=== PATIENT | female | born 1945 | race Caucasian/White ===

== ENCOUNTER → 2017-02-27 | Outpatient (CLI) | payer OTHER ==
[~2017-02-27] VITALS: Ht 157.5 cm; Wt 73.0 kg
[~2017-02-27] MED LIST: ASPIR 8181 MG PO; CALCIUM500 MG PO; CELEBREX 200 M200 M1 PO; KRILL OIL 1,001 EAC1 PO; LEVOTHYROXINE0.05 MG PO; MELATONIN3 MG PO; METHADONE HCL5 MG PO; MIRAPEX0.25 MG PO; NEURONTIN600 MG PO; NEXIUM40 MG PO; OMEPRAZOLE40 MG PO; PERCOCET; STOOL SOFTENER100 M1 PO; TRAMADOL 50 MG50 MG PO; UNICOMPLEX M TA1 TA1 PO; VITAMIN D3400 UNIT PO; ZANAFLEX4 M2 PO; ZANAFLEX4 MG PO; ZANTAC 150MG T150 MG PO; ZOCOR40 MG PO; ZOLPIDEM TARTRA10 MG PO; [UNRECOGNIZED DRUG - REMARK]; [UNRECOGNIZED DRUG - REMARK]
--- NOTE | ~2017-02-27 | HPC ---
[facility] [address] [address] PAIN MANAGEMENT CONSULTATION Name: MARILYN BAILON Room #: REG [facility] [id number] Admission: 02/27/17 Attend Phys: Terry Avilez MD Discharge: Date of : 41 Report #: [id number] THIS REPORT FOR: //name// CC: Fredrick Avilez DATE OF SERVICE: 02/27/2017 REASON FOR CONSULTATION: Followup visit for low back pain with radiculopathy, status post laminectomy. HISTORY OF PRESENT ILLNESS: The patient returns to pain clinic for medication management. She is on methadone. She tells me that her insurance company may not allow her to take it or is going to charge her a premium if she is taking methadone. This medication works well for her. She has very few side effects. Its long acting effects provided [id number] pain relief for this poor woman who has had post-laminectomy syndrome and chronic intractable pain. She has had multiple back surgeries. She deserves to be on some medication. Given her improvement in daily function and lack of side effects and her modest dose of methadone at 15-20 mg a day, I think she should be allowed to remain on it. Other medications include tizanidine, docusate, simvastatin, melatonin, ranitidine, krill oil, calcium, cholecalciferol, and gabapentin. ALLERGIES: MORPHINE and HYDROCODONE are poorly tolerated, OXYCODONE causes nausea and higher doses of METOCLOPRAMIDE and TRAMADOL cause dizziness. PAST MEDICAL HISTORY: Significant for 3 low back surgeries in 2004, 2012 and 2013 and another surgery in 2016. She has had breast reconstruction, cervical fusion and bilateral total shoulder surgery and hysterectomy. SOCIAL HISTORY: She denies tobacco or alcohol. 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 PHYSICAL EXAMINATION: GENERAL: She is soft spoken, pleasant, does not appear overmedication. VITAL SIGNS: Blood pressure 136/75, heart rate 58, respirations 15. She walks with a cane. Her BMI is 29.4. MUSCULOSKELETAL: She has tenderness across her scars of her low back. She has bilateral leg pain with significant pain into her left groin and pain with internal and external rotation of the hips suggesting hip arthropathy. She has had x-rays confirming this. She has decreased sensation in the lower extremities and decreased deep tendon reflexes as well. [facility] [address] [place] [address] PAIN MANAGEMENT CONSULTATION Name: MARILYN BAILON [facility] [id number] Admission: 02/27/17 Attend Phys: Terry Avilez MD Discharge: Date of : 41 Report #: [id number] IMPRESSION: 1. Chronic low back pain with radiculopathy status post multiple lumbar surgeries and fusion. 2. Management of high risk medication. 3. Osteoarthritis, left hip. PLAN: 1. I have renewed her methadone at 20 mg a day. 2. Urine drug screen was performed today in terms of our opioid agreement. 3. I performed rhythm strip today and look for QT interval prolongation, which she does not have. 4. Follow up in the pain clinic in 3 months. Because of the restrictions she is having financially with methadone, we may consider at transitioning her to a different opioid. By: [id number] Terry Avilez MD /nt
[2017-02-27 09:20] VITALS: BP 136/75
== END ==
LOC: PAIN 06:52
DX: M54.16 Radiculopathy, lumbar region (principal); M96.1 Postlaminectomy syndrome, not elsewhere classified; Z90.710 Acquired absence of both cervix and uterus; M16.12 Unilateral primary osteoarthritis, left hip

== ENCOUNTER → 2017-05-05 | Outpatient (CLI) | payer OTHER ==
[~2017-05-05] VITALS: Ht 157.5 cm; Wt 72.0 kg
[~2017-05-05] MED LIST changes: +CRESTOR10 MG PO; +OXYCODONE-ACET1 EACH PO
--- NOTE | ~2017-05-05 | HPC ---
[facility] [address] [address] PAIN MANAGEMENT CONSULTATION Name: MARILYN BAILON Room #: REG [facility]..#: [id number] Admission: 05/05/17 Attend Phys: Terry Avilez MD Discharge: Date of : 41 Report #: [id number] THIS REPORT FOR: //name// CC: NINA Sauceda MD DATE OF SERVICE: 05/05/2017 Followup visit for management of chronic opioid medication for intractable low back pain with radiculopathy, status post multiple back surgeries. The patient returns to pain clinic today for renewal of her methadone. She is on 5 mg 4 times daily by our last record; however, she has self tapered to 5 mg t.i.d. and has done pretty well. Her neuropathic pain has been managed well with the transition of methadone and she has few side effects. She has bilateral osteoarthritis involving her knees and she is undergoing bilateral knee replacement with Dr. Sukumar Sauceda in 2 weeks. She is here today for renewal of her baseline pain medication and also to discuss management of these medications in the perioperative period. We reviewed her other medications as well during her visit today. Medications include methadone 5 mg t.i.d., tizanidine 4 mg p.r.n., Crestor 10 mg daily, simvastatin 40 daily, melatonin 3 mg at bedtime, ranitidine 150 mg b.i.d., calcium, multivitamins, vitamin D3, Synthroid, gabapentin 600 mg t.i.d. and Mirapex. ALLERGIES: Morphine, hydrocodone, oxycodone are poorly tolerated, but she does well with methadone. She is allergic to REGLAN, TRAMADOL causes nausea and dizziness. PHYSICAL EXAMINATION: GENERAL: She is pleasant, alert and oriented. She has no signs of overmedication anxiety or depression. VITAL SIGNS: Her blood pressure is 108/50, heart rate 53, respirations 14. Her BMI 29. MUSCULOSKELETAL: She is able to move from a sitting to standing position and walks upright. She has tenderness bilaterally in the knees. Range of motion increases discomfort bilaterally in the knees. She has tenderness over the scar of her back and straight leg raising causes some leg pain bilaterally. IMPRESSION: 1. Chronic intractable low back pain, post-laminectomy syndrome. 2. Osteoarthritis, bilateral knees. [address] [address] PAIN MANAGEMENT CONSULTATION Name: MARILYN BAILON Room #: REG [facility] CecilSridhar.#: [id number] Admission: 05/05/17 Attend Phys: Terry Avilez MD Discharge: Date of : 41 Report #: [id number] 3. Management of high risk medications. PLAN: I have recommended that over the course of the next 2 weeks, she try to taper to the lowest dose she can with her methadone. This simple tapering may provide her with better pain control in the postoperative period using opioids. She may also use adjuncts as described with Dr. Sauceda. She can continue on her gabapentin. At the time of surgery, she can resume her dose of 15 mg per day of methadone as a baseline, and I have also taken the liberty today of providing her with her breakthrough medication and given her 60 tablets of oxycodone 10/325 one tablet q. 4- 6 hours p.r.n. postoperative pain. I have also written a note by hand that she can give to Dr. Sauceda that says that she has been followed for chronic pain syndrome and I have prescribed breakthrough medication for her. If, however, they feel that other adjuncts or changes in medication are appropriate, I have no problems with that and it should not insurance coder the way of providing her with good postoperative pain control. She will contact our office if there are any problems and I am going to see her back in 2-3 months. By: [id number] Terry Avilez MD /nt
[2017-05-05 08:41] VITALS: BP 108/50
== END | disposition home or self-care (01) ==
LOC: PAIN 06:05
DX: M96.1 Postlaminectomy syndrome, not elsewhere classified (principal); G89.29 Other chronic pain; M17.0 Bilateral primary osteoarthritis of knee; F11.20 Opioid dependence, uncomplicated; Z88.8 Allergy status to other drugs, medicaments and biological substances; Z98.890 Other specified postprocedural states

== ENCOUNTER → 2017-07-28 | Outpatient (CLI) | payer OTHER | LOC: PAIN 07:04 | DX: M54.5 Low back pain (principal); Z96.652 Presence of left artificial knee joint ==

== ENCOUNTER → 2017-08-25 | Outpatient (CLI) | payer OTHER ==
[~2017-08-25] VITALS: Ht 157.5 cm; Wt 73.5 kg
[~2017-08-25] MED LIST changes: +IBUPROFEN 800800 M1 PO; +OXYCODONE-ACET1 EAC2 PO
--- NOTE | ~2017-08-25 | HPC ---
[facility] [place] [address] PAIN MANAGEMENT CONSULTATION Name: MARILYN BAILON [facility] #: [facility] [id number] Admission: 08/25/17 Attend Phys: Terry Avilez MD Discharge: Date of : 41 Report #: [id number] THIS REPORT FOR: //name// CC: Fredrick Avilez DATE OF SERVICE: 08/25/2017 Followup visit for management of opioid medication with tapering of methadone. The patient returns to pain clinic today and I am pleased to report that she is nearly off of her methadone. The goal was to go off of methadone, but she has substituted oxycodone for it. She was previously taking methadone 15 mg daily, is now down to 2.5 mg daily. In replacement, she has been using oxycodone and is up to 20 mg per day. She has gotten off of methadone because of insurance restrictions. She is told that she could not get insurance while on methadone. I have learnt not to question insurance's restrictions since they are so many and they are so varied. It makes no different that we have had such excellent success in treating chronic intractable pain with methadone carefully monitored. We will follow up her request and discontinue methadone by the end of the week. She has made good progress since her bilateral knee replacement surgery. She is hopeful that she may be able to taper her oxycodone as well. She is stronger as a result of swimming 3-4 times a week, and is doing pool exercises in between. She is working towards independence. Unfortunately, she continues to have left sciatica which is constant and it is worse than it was before surgery. She has had two surgeries, Dr. oLng did the first, Dr. Bella did redo fusion. She may have some mobile segment above and below her fusion which includes L4 and L5, but I not certain that Dr. Bella fused the L5-S1 segment. PHYSICAL EXAMINATION: She appears stronger. She is pleasant, alert, and oriented. She has her blood pressure 150/72, heart rate 67, BMI is 29.6. She is able to move from sitting to standing position, and ambulates on her new knees with good muscle tone noted. She has a positive straight leg raising, sciatic discomfort on the left, but the knees are doing well with minimal tenderness. Incisions are healed nicely. IMPRESSION: 1. Chronic low back pain following multiple surgeries including recent fusion, repeat in October [address] Trevon Bella. Persistent low back pain with radiculopathy on the left L5-S1. 2. Status post bilateral knee replacement. She is doing well with continued excellent efforts towards rehabilitation. 3. Management of high-risk medication. [address] [address] PAIN MANAGEMENT CONSULTATION Name: MIGUEL BAILONHUMBERTO Cecil Room #: REG CL Ketan#: [id number] Admission: 08/25/17 Attend Phys: Terry Avilez MD Discharge: Date of : 41 Report #: [id number] RECOMMENDATIONS: We have disposed the remaining methadone tablets. We provided her with a prescription for oxycodone 10/325, #60 tablets 1 tablet twice daily or 1-1/2 tablet up to 4 times daily. She was given a prescription refill for 4 and 8 weeks. We reviewed the importance of safeguarding medications under terms of an opioid agreement. Followup visit planned in 3 months. By: [id number] Terry Avilez MD /nt
[2017-08-25 12:40] VITALS: BP 150/72
== END | disposition home or self-care (01) ==
LOC: PAIN 07:34
DX: Z76.0 Encounter for issue of repeat prescription (principal); G89.29 Other chronic pain; M54.16 Radiculopathy, lumbar region; Z98.890 Other specified postprocedural states; Z96.653 Presence of artificial knee joint, bilateral; Z79.891 Long term (current) use of opiate analgesic; Z88.6 Allergy status to analgesic agent; Z88.8 Allergy status to other drugs, medicaments and biological substances

== ENCOUNTER → 2017-10-13 | Outpatient (CLI) | payer OTHER ==
[~2017-10-13] VITALS: Ht 157.5 cm; Wt 75.3 kg
[~2017-10-13] MED LIST changes: +IBUPROFEN 600600 M1 PO; -IBUPROFEN 800800 M1 PO
--- NOTE | ~2017-10-13 | HPC ---
[facility] [place] [address] PAIN MANAGEMENT CONSULTATION Name: MARILYN BAILON Room #: REG [facility]#: [id number] Admission: 10/13/17 Attend Phys: Terry Avilez MD Discharge: Date of : 41 Report #: [id number] THIS REPORT FOR: //name// CC: Fredrick Avilez DATE OF SERVICE: 10/13/2017 Followup visit for low back pain with radiculopathy on the left. Postlaminectomy syndrome with fusion. The patient is here today to discuss an epidural injection. She saw Dr. Bella. Although additional surgeries may be in the offing she already has had extensive lumbar and Thoracic Surgery. She has ongoing persistent pain that radiates into the left leg. Although it follows the L5-S1 region. Dr. Bella felt that it is possible that the pain may be generated in the lateral recess on the left above the level of her fusion. She has a decompression in the lower lumbar region as well as the decompression in the upper lumbar and thoracic. Fusion is noted in the lumbar spine with hardware on the right. She says the pain currently is extremely severe, radiates in a sharp shaking manner down the left leg, not only down the back or leg, but also into the left groin, which does follow an L1-L2 distribution. MEDICATIONS: Oxycodone 10/325 one tablet taken twice a day. We discussed increasing it to 3 times a day. At one time, I had her on a low dose methadone, which was intended to help with a neuropathic component with it NMDA antagonism. She decided that she does not want to be off and tapered off of it. Her pain level; however, has been persistent around 5/10. She has been working at therapy over the course of the last 2 months, but is tailed off recently due to exacerbations of pain. PHYSICAL EXAMINATION: Blood pressure 148/74, heart rate 68. BMI is 30. Affect is depressed pain across the low back. Pain across her scars positive straight leg raising is noted on the left and right worse in the left groin. Mild pain in the left hip with internal and external rotation. IMPRESSION: 1. Post-laminectomy syndrome with radiculopathy, recent fusion. 2. Status post bilateral knee replacements with osteoarthritis improvement there. 3. Management of high risk medication oxycodone. PLAN: 1. I have rewritten for her medication. 2. Left L1-L2 transforaminal epidural injection on the left under fluoroscopic [facility] [address] [place] [address] PAIN MANAGEMENT CONSULTATION Name: MARILYN BAILON Room #: REG [facility]#: [id number] Admission: 10/13/17 Attend Phys: Terry Avilez MD Discharge: Date of : 41 Report #: [id number] guidance. Procedure: LUMBAR TRANFORAMINAL INJECTION LEFT L 1-2 We discussed midline injection but due to significant osteophytes we were unable to enter the epidural space using a traditional translaminar epidural approach. I then with informed consent transitined to transforaminal injection as noted. 3. She was taken to fluoroscopic suite, placed prone, skin prepped with ChloraPrep. Skin was anesthetized over L2-L3 and a 20-gauge Tuohy epidural needle advanced in the epidural space Several attempts were made to identify the ligament of flavum without success and entering the epidural space due to osteophytic information. We transitioned to transforaminal approach. Skin was anesthetized and a 22-gauge needle advanced into the neural foramen on the left using triplanar fluoroscopic views. Good spread of Omnipaque was noted along the L1 nerve root and then extending into the epidural space was followed then by 3 mL of 0.5% lidocaine mixed with 80 mg of triamcinolone pain, reduced to a 2 in recovery room. Followup visit planned for medication management in 1 month. <ELECTRONICALLY SIGNED> By: Terry Avilez MD 10/15/17 1551 [id number] Terry Avilez MD /nt
[2017-10-13 09:11] VITALS: BP 148/74
== END | disposition home or self-care (01) ==
LOC: PAIN 06:05
DX: M96.1 Postlaminectomy syndrome, not elsewhere classified (principal); Z68.30 Body mass index [BMI] 30.0-30.9, adult; M54.10 Radiculopathy, site unspecified; M54.16 Radiculopathy, lumbar region

== ENCOUNTER → 2018-01-05 | Outpatient (CLI) | payer OTHER ==
[~2018-01-05] VITALS: Ht 157.5 cm; Wt 77.0 kg
--- NOTE | ~2018-01-05 | HPC ---
[facility] [address] [address] PAIN MANAGEMENT CONSULTATION Name: MARILYN BAILON Room #: REG [facility].#: [id number] Admission: 01/05/18 Attend Phys: Terry Avilez MD Discharge: Date of : 41 Report #: [id number] THIS REPORT FOR: //name// CC: Trevon Avilez DATE OF SERVICE: 01/05/2018 REASON FOR VISIT: Followup visit for low back pain with radiculopathy on the left, status post laminectomy with fusion. HISTORY OF PRESENT ILLNESS: The patient returns today for renewal of her medication and for an epidural injection. She is on oxycodone 10/325 three times daily but has been on methadone in the past and would like to rotate back to it. I have agreed to provide her with 5 mg of methadone 3 times daily for a total of 15 mg equaling 60 MME. She has tried multiple other classes of medications including anti-inflammatories and anti-seizure drugs with limited improvement. Today, she states her pain intensity is high, 6-7 particular with walking. We reviewed her PQRS issues. She has a history of osteoarthritis of the hands and back. Her BMI is 31.0 and she has found difficulty controlling her weight due to her lack of ability to get up and about. She is not hypertensive and is not on her current treatment. She needs help walking and standing and uses a cane, but has not had a fall in the last 3 months and is not considered a fall risk. She is on no blood thinners. Her opioid risk assessment tool is low, 2-3 and her functional assessment tool shows that she is affected mostly in the in regards to her mood, which is 7/10 and walking ability 5/10 and sleep, which is 5/10. Her goals are to be able to remain walking and resume activities. Continue with an exercise program, swimming at her facility. IMPRESSION: Chronic low back pain, post-laminectomy syndrome with fusion. Left lumbar radiculopathy involving L4-L5 distribution. RECOMMENDATION: Lumbar epidural injection L4-L5 under fluoroscopic guidance. PROCEDURE: She was taken to fluoroscopic suite for treatment, placed prone, skin prepped with ChloraPrep. Skin anesthetized over the L4-L5 interspace. A 20-gauge Tuohy epidural needle advanced first attempt in the epidural space with loss of resistance technique. There was no blood or CSF aspirated. 1 mL of Omnipaque was injected and an excellent spread of dye was observed into the epidural space followed by 3 mL of 0.5% lidocaine mixed with 80 mg of triamcinolone. He tolerated the procedure well and was observed for 45 minutes and discharged. [address] [address] PAIN MANAGEMENT CONSULTATION Name: MARILYN BAILON Room #: REG CLAlida Aceves#: [id number] Admission: 01/05/18 Attend Phys: Terry Avilez MD Discharge: Date of : 41 Report #: [id number] Followup visit planned as needed. <ELECTRONICALLY SIGNED> By: Terry Avilez MD 01/28/18 1640 2032 0017 Terry Avilez MD /nt
[2018-01-05 13:53] VITALS: BP 146/74
== END | disposition home or self-care (01) ==
LOC: PAIN 07:08
DX: M54.16 Radiculopathy, lumbar region (principal); M96.1 Postlaminectomy syndrome, not elsewhere classified; F11.20 Opioid dependence, uncomplicated; Z68.31 Body mass index [BMI] 31.0-31.9, adult; M19.042 Primary osteoarthritis, left hand; M19.041 Primary osteoarthritis, right hand

== ENCOUNTER → 2018-07-16 | Outpatient (CLI) | payer OTHER ==
[~2018-07-16] VITALS: Ht 157.5 cm; Wt 75.6 kg
--- NOTE | ~2018-07-16 | HPC ---
[facility] [address] [place] [address] PAIN MANAGEMENT CONSULTATION Name: MARILYN BAILON Room #: REG [facility].#: [id number] Admission: 07/16/18 Attend Phys: Terry Avilez MD Discharge: Date of : 41 Report #: [id number] THIS REPORT FOR: //name// CC: Fredrick Avilez DATE OF SERVICE: 07/16/2018 Followup visit for chronic back pain and osteoarthritis of left hip. Marilyn is here today for renewal of medications we provide for her to treat chronic intractable back pain with radiculopathy. She has had a laminectomy with fusion. Her recovery was very long and slow, but as noted in her last visit, she has made nice progress. Her pain scores remain low with medication for which she is grateful. She has no significant side effects from methadone taking 5 mg 3 times a day for her pain. She has no cognitive issues and has only mild constipation. Her activity levels around the house are good and she is able to drive a car without significant pain. She gardens and does other activities as part of her goal of remaining active. PQRS review shows that she has pain in her left hip with some osteoarthritis there and may be a candidate for hip replacement. She is keeping her weight down with a BMI of 30.5, blood pressure 127/77, heart rate 57, respirations 20, pain score 3/10. She is not a fall risk. She is on no blood thinners and she is on opioid medication having filled out an opioid agreement in 01/2016, most recently. She is at low risk for addiction. SOCIAL HISTORY: She does not smoke, but drinks alcohol once or twice a week in a social setting. PHYSICAL EXAMINATION: GENERAL: She is alert and oriented, without signs of overmedication. She shows no depression. She is easily able to move from sitting to standing position, walks without antalgic features. She has pain across her low back and tenderness from her scar. Straight leg raising reproduces some pain into the low back and legs, but this is mild and much improved. She has pain and tenderness over the greater trochanter in the left hip and there is pain with internal and external rotation. IMPRESSION: 1. Chronic low back pain with radiculopathy, post-laminectomy syndrome. She also has fusion. 2. Osteoarthritis, particularly left hip. PLAN: We will continue her on methadone 5 mg 3 times daily. Recent [facility] [address] [place] [address] PAIN MANAGEMENT CONSULTATION Name: MARILYN BAILON [id number] Admission: 07/16/18 Attend Phys: Terry Avilez MD Discharge: Date of : 41 Report #: [id number] calculations have used an MME of 3-1 and that calculates at 40 morphine milligram equivalents. PDMP testing was performed and there are no unusual entries. By: [id number] MD parveen Corbett
[2018-07-16 09:28] VITALS: BP 127/77
== END ==
LOC: PAIN 07:15
DX: M54.16 Radiculopathy, lumbar region (principal); M16.12 Unilateral primary osteoarthritis, left hip; G89.29 Other chronic pain; Z79.899 Other long term (current) drug therapy

== ENCOUNTER → 2018-10-26 | Outpatient (CLI) | payer OTHER ==
[~2018-10-26] VITALS: Ht 157.5 cm; Wt 79.0 kg
--- NOTE | ~2018-10-26 | HPC ---
[facility] [address] PAIN MANAGEMENT CONSULTATION Name: MARILYN BAILON Room #: REG [facility].#: [id number] Admission: 10/26/18 Attend Phys: Guillermina Perez Discharge: Date of : 41 Report #: [id number] THIS REPORT FOR: //name// CC: Guillermina Alexandra MD DATE OF SERVICE: 10/26/2018 CHIEF COMPLAINT: Followup visit today for chronic back pain and osteoarthritis of her left hip. HISTORY OF PRESENT ILLNESS: The patient is here today for refill of her medications that we give to her for her chronic back pain and left hip pain. She has had several back surgeries in the past and tells me that Friday she will be having a total hip replacement of her left hip by Dr. Sauceda. She gives her pain score a 4/5 today, worse with standing and walking and the weather, better with lying down and resting and her medications. She has been having increasing left groin pain and tells me that she did have one injection in her left hip that made her pain completely go away, and therefore she decided that it was finally time to have her hip operated on. The patient is here for her followup for her medications prior to this surgery. ALLERGIES: MORPHINE, REGLAN AND TRAMADOL. CURRENT LIST OF MEDICATIONS: Methadone 5 mg 3 times a day, Crestor 10 mg daily, tizanidine 4 mg 1-2 at bedtime, Colace stool softener, Zantac 150 mg at bedtime, CPD hormones daily, calcium daily, multivitamin daily, vitamin D3 daily, Synthroid 50 mcg daily, Mirapex 0.25 mg twice a day and gabapentin 600 mg 3 times a day. PQRS: 1. She has a history of osteoarthritis in her back, hands and left hip, denies rheumatoid arthritis. 2. Her height is 5 feet 2 inches, her weight is 174, her BMI is 31.9. 3. Her vital signs are 139/68, pulse is 56, respirations 16, and oxygen sat is 100%. 4. Her pain score is 4/5. 5. Her fall risk, she denies dizziness, uses a cane for walking and has not fallen in the last 3 months. 6. She is not on any blood thinners and does not have a history of hypertension. 7. Her opioid therapy is greater than 6 weeks, therefore she has an opioid signed contract on the chart. Her risk assessment tool is low and her functional assessment is 27/70. She denies recreational drug use, does not [address] [address] PAIN MANAGEMENT CONSULTATION Name: MARILYN BAILON Room #: REG [facility].#: [id number] Admission: 10/26/18 Attend Phys: Guillermina Perez Discharge: Date of : 41 Report #: [id number] smoke tobacco and occasionally has some alcohol drinks up to 1 drink a week. We checked [facility] prescription monitoring system on this patient and she is filling her methadone appropriate by Dr. Terry Avilez. The patient tells me she safeguards her medicines. PHYSICAL EXAMINATION: GENERAL: This is an alert, orientated patient who appears her stated age. Her affect is appropriate. HEENT: Normocephalic, atraumatic. Extraocular eye muscles are intact. Mucous membranes are moist. Hearing is adequate. NECK: No JVD or adenopathy. She has good range of motion. MUSCULOSKELETAL: She has pain across her lower back, tenderness from her scar incisional area, right leg raising has some pain in her lower back and legs. Tenderness in her left hip and into her groin area. Lower extremity strength to be judged at 5/5 in all major muscle groups. IMPRESSION: Chronic low back pain with radiculopathy, post-laminectomy syndrome. She has had fusions. Osteoarthritis of her left hip. Complex medical management requiring high risk medications. We reviewed the fact that opiate medications are being used to provide analgesia adequate to support activities of daily living, not attempting to achieve a specific pain score on the 0-10 Visual Analog Scale. The current opiate medications are providing sufficient analgesia to allow the patient to participate in activities of daily living. The patient is not exhibiting any aberrant behavior suggestive of drug diversion. The patient is not having any adverse reactions to medications. The patient is not suffering from daytime somnolence or mental acuity changes. The patient is managing opiate-induced constipation with appropriate owxf-xtz-idnwzeo agents and dietary considerations. The patient was counseled on concern for caution with operating a motor vehicle while using opiate medications. A physical exam was performed and the patient's functional status was evaluated. All patients with back pain were advised against the bed rest greater than 4 days and were advised to return to normal activities. Pain score assessment was noted and the treatment plan was reviewed with the patient. All current medications, both prescribed and OTC were reviewed and reconciled on the electronic medical record. Tobacco screening was accomplished and smoking cessation was advised when indicated. BMI was noted and diet/exercise modification was recommended for all patients following outside normal parameters. I reviewed with the patient today their responsibilities to safeguard prescription medications, reviewed their responsibility to utilize medications only as prescribed by the physician. They are to seek and receive pain medications only from 1 physician group ( [facility]). They are to use [address] [id number] PAIN MANAGEMENT CONSULTATION Name: MARILYN BAILON Room #: REG [facility]#: [id number] Admission: 10/26/18 Attend Phys: Guillermina Perez Discharge: Date of : 41 Report #: [id number] pharmacy and keep the clinic informed if they change pharmacies. Their responsibilities include making followup visits in a timely fashion and to avoid abrupt discontinuation of medication usage. Their responsibilities further include bringing their medications (bottles from the pharmacy with residual pills) to the visit for possible confirmation of pill counts and the patient understands it is their responsibility to submit to random drug screens to ensure both that the medications prescribed are present, and that no other controlled substances are present. All prescriptions provided today were generated electronically. PLAN: 1. The patient returned to the clinic today for follow up for her medications management. We will continue her on methadone 5 mg 3 times a day, #90 for today, 4-week and 8-week, scripts given. 2. It was discussed that the patient will decrease her methadone to 2 tablets a day until her surgery to hopefully aid a little bit in her postop pain control. The patient is agreeable to this. Would have liked to have done this a little longer for her better pain control postop, but at least a few days should be helpful. 3. The patient informed me that the surgeon is planning on giving her oxycodone. I told her that is fine. She looks like she had had oxycodone 5/325 in the past for postop knee surgery. The patient thinks she will require that for 2 weeks. The patient will inform us if it needs to be longer and then we will write a prescription as needed. 4. We did discuss CBD oil. The patient has tried this, but did not think it was very helpful. We did talk about this for a while, stating that it is not regulated so not all CBD is the same in strength and concentration. The patient thought that was the case for her and has not been continuing it, maybe in the future if it is regulated she may try it again. 5. We discussed constipation. The patient takes Colace and FiberCon for this. I explained that she may need to increase this some, especially as she takes hydrocodone or oxycodone in the postop phase and with decreased mobility she may have increase in constipation and encouraged her to drink plenty of liquids to prevent constipation. The patient is agreeable with this plan of care, will follow up with us in 3 months' time. The patient seen in collaboration with Dr. Terry Avilez today. <ELECTRONICALLY SIGNED> By: Guillermina Perez 10/27/18 0819 [id number] Guillermina Perez /roseann
[2018-10-26 12:22] VITALS: BP 139/68
== END ==
LOC: PAIN 00:27
DX: M54.16 Radiculopathy, lumbar region (principal); M43.26 Fusion of spine, lumbar region; M16.12 Unilateral primary osteoarthritis, left hip; G89.29 Other chronic pain; M96.1 Postlaminectomy syndrome, not elsewhere classified; Z79.899 Other long term (current) drug therapy

== ENCOUNTER → 2019-01-22 | Outpatient (CLI) | payer OTHER ==
[~2019-01-22] VITALS: Ht 157.5 cm; Wt 79.4 kg
[2019-01-22 09:53] VITALS: BP 141/77
--- NOTE | 2019-01-22 10:01 | NUR ---
Pain Clinic Assessment: 1. History of Osteoarthritis: BACK HANDS History of Rheumatoid Arthritis: Not Applicable 2. Height: 5 ft. 2 in. 157.5 cm. Weight: 175.0 lb. oz. 79.380 kg. Patient's BMI: 32.0 3. Vital Signs: BP: 141/77 Pulse: 61 Resp: 18 Temp: 02 Sat: 100 ECG Mon: 4. Pain Intensity: 4-5 5. Fall Risk: Dizziness: N Needs help standing or walking: Y Fallen in the last 3 months: N Fall risk comments: 6. Patient on Blood Thinner: None 7. History of Hypertension: N 8. Opioid Therapy greater than 6 weeks: Y Opiate Contract Signed: 02/28/16 9. Risk Assessment Tool Provided: Opioid Risk Tool 10. Functional Assessment Tool: 27 11. Recreational Drug Use: Never Drug Type: Tobacco Use: Never Smoker Tobacco Type: Amount or Packs/day: How Many Years: Alcohol Use: Yes Frequency: Special Occasions Quant:
--- NOTE | 2019-01-25 13:58 | HPC ---
[facility] [place] [address] PAIN MANAGEMENT CONSULTATION Name: MARILYN BAILON Room #: REG [facility]#: [id number] Admission: 01/22/19 ������������������ Attend Phys: Guillermina Perez Discharge: ������������������ Date of : 41 Report #: [id number] THIS REPORT FOR: //name// CC: Guillermina Perez FAM unknown Deonna Browne DATE OF SERVICE: 01/22/2019 CHIEF COMPLAINT: Chronic back pain and osteoarthritis of her left hip. HISTORY OF PRESENT ILLNESS: The patient returns to the pain clinic today for medication refill. She recently had her left hip replaced in October. She tells me that she is still having some pain in that hip, especially the left groin and today complaining of an increase in her lower back pain. She is seeing Dr. Beasley, her orthopedic doctor on Friday and she does have an appointment with Dr. Alexandra, her primary care doctor following that. She thinks that maybe she will have another MRI ordered to see what is going on with her back. She is walking with a cane today mostly for slight stability issues. She feels that she should be off the cane by now since her hip surgery in October. She would like a refill of her methadone today. She has been taking some postoperative oxycodone that was given to her by Dr. Beasley after her surgery. She tells me the last dose was a couple days ago, she has been taking now only about 1-2 a week. ALLERGIES: MORPHINE, REGLAN and TRAMADOL. CURRENT LIST OF MEDICATIONS: Methadone 5 mg 3 times a day, ibuprofen 600 mg as needed, Crestor 10 mg daily, tizanidine 1-2 tablets at bedtime, stool softener as needed, Zantac 150 mg b.i.d., CPD hormones daily, calcium 500 mg daily, multivitamin daily, vitamin D3 daily, Synthroid 500 mcg daily, Mirapex 0.25 mg b.i.d. and gabapentin 600 mg t.i.d. PQRS: 1. She does have a history of osteoarthritis in her back, hands and left hip. Denies rheumatoid arthritis. 2. Height is 5 feet 2 inches, weight is 175. BMI is 32. 3. Vital signs: Blood pressure 141/77, pulse is 61, oxygen 100%, respirations 18. 4. Pain score is 4-5/10. 5. Denies dizziness. Uses a cane with walking and has not fallen in the last 3 months. 6. The patient is not on a blood thinner. She does not have a history of hypertension. 7. Opioid therapy is greater than 6 weeks, therefore an opioid signed contract is on the chart. [address] [address] PAIN MANAGEMENT CONSULTATION Name: MARILYN BAILON Room #: REG [facility]#: [id number] Admission: 01/22/19 ������������������ Attend Phys: Guillermina Perez Discharge: ������������������ Date of : 41 Report #: [id number] 8. Risk assessment tool is low. Her functional assessment is 27/70. 9. Recreational drug use, she denies. She is not a smoker and she occasionally drinks alcohol. We did check the prescription monitoring system. The patient is filling appropriately with her medications. She did fill some oxycodone recently from her surgeon. We will check a buccal drug screen on her today as it has been greater than one year PHYSICAL EXAMINATION: GENERAL: This is an alert, orientated, well-nourished female who appears her stated age. Her affect is appropriate. HEENT: Normocephalic, atraumatic. Extraocular eye muscles are intact. Mucous membranes are moist. Hearing is adequate. NECK: No JVD or adenopathy. MUSCULOSKELETAL: She complains of some pain across her lower back, tenderness in her left groin and on the outer aspect of her left hip. The patient is able to abduct without difficulty, able to rise from sitting to standing position without using the arm rest, does use a cane for some slight balance issues. Her lower extremity strength judged to be 5/5 in all major muscle groups. ASSESSMENT: 1. Chronic low back pain with radiculopathy. 2. Post-laminectomy syndrome. 3. Osteoarthritis of the left hip post left hip replacement. 4. Complex medical management requiring high risk medications. We reviewed the fact that opiate medications are being used to provide analgesia adequate to support activities of daily living, not attempting to achieve a specific pain score on the 0-10 Visual Analog Scale. The current opiate medications are providing sufficient analgesia to allow the patient to participate in activities of daily living. The patient is not exhibiting any aberrant behavior suggestive of drug diversion. The patient is not having any adverse reactions to medications. The patient is not suffering from daytime somnolence or mental acuity changes. The patient is managing opiate-induced constipation with appropriate uxlg-nnx-tsqbmmw agents and dietary considerations. The patient was counseled on concern for caution with operating a motor vehicle while using opiate medications. A physical exam was performed and the patient's functional status was evaluated. All patients with back pain were advised against the bed rest greater than 4 days and were advised to return to normal activities. Pain score assessment was noted and the treatment plan was reviewed with the patient. All current medications, both prescribed and OTC were reviewed and reconciled on the electronic medical record. Tobacco screening was accomplished and smoking cessation was advised when indicated. BMI was noted and diet/exercise modification was recommended for all patients following outside normal [facility] [address] [place] [address] PAIN MANAGEMENT CONSULTATION Name: MARILYN BAILON Room #: REG [facility].#: [id number] Admission: 01/22/19 ������������������ Attend Phys: Guillermina Perez Discharge: ������������������ Date of : 41 Report #: [id number] parameters. I reviewed with the patient today their responsibilities to safeguard prescription medications, reviewed their responsibility to utilize medications only as prescribed by the physician. They are to seek and receive pain medications only from 1 physician group ( [facility]). They are to use 1 pharmacy and keep the clinic informed if they change pharmacies. Their responsibilities include making followup visits in a timely fashion and to avoid abrupt discontinuation of medication usage. Their responsibilities further include bringing their medications (bottles from the pharmacy with residual pills) to the visit for possible confirmation of pill counts and the patient understands it is their responsibility to submit to random drug screens to ensure both that the medications prescribed are present, and that no other controlled substances are present. All prescriptions provided today were generated electronically. PLAN: 1. We discussed treatment options with the patient today. The patient tells me she has some ongoing left hip pain and she thought that maybe her pain and her gait would be better by now. I explained to the patient that it can take 6 months to a year. This was reiterated when Dr. Underwood saw the patient briefly, and to not be discouraged, that it takes a while for all the healing process and she can have ongoing pain. We encouraged her to continue to use her cane as she needs to for some balance. 2. The patient will see her orthopedic doctor and have another x-ray possibly on Friday. I think this will help the patient with letting her know there is probably nothing going on in her hip, but this will be good just to check and know that it will just take slightly longer to heal. 3. The patient also has appointment with Dr. Alexandra in the near future. She may consider having another MRI ordered of her back. She just feels that this pain has increased since her surgery. 4. The patient given scripts today of methadone 5 mg 3 times a day, to be released today, in 4-week and an 8-week. The patient encouraged to use her oxycodone from her surgeon sparingly and try to slowly wean off that medication as she is able. 5. The patient instructed to make an appointment if she feels like she needs an epidural by Dr. Avilez, otherwise, she will follow up in 3 months' time. The patient is seen today in collaboration and with Dr. Underwood present today for a short part of her visit. ��������������������������������������������� <ELECTRONICALLY SIGNED> ���������������������������������������� By: Guillermina Perez ��������������������������������������������� 01/25/19 1358 1050 20 Guillermina Perez /nt
== END ==
LOC: PAIN 06:55
DX: M96.1 Postlaminectomy syndrome, not elsewhere classified (principal); Z96.642 Presence of left artificial hip joint; Z79.899 Other long term (current) drug therapy; Z88.5 Allergy status to narcotic agent; Z88.8 Allergy status to other drugs, medicaments and biological substances; M54.16 Radiculopathy, lumbar region

== ENCOUNTER → 2019-02-15 | Outpatient (CLI) | payer OTHER ==
[~2019-02-15] VITALS: Ht 157.5 cm; Wt 78.4 kg
--- NOTE | ~2019-02-15 | HPC ---
[facility] [place] [address] [place] [address] PAIN MANAGEMENT CONSULTATION Name: MARILYN BAILON Room #: REG [facility]..#: [id number] Admission: 02/15/19 ������������������ Attend Phys: Terry Avilez MD Discharge: ������������������ Date of : 41 Report #: [id number] THIS REPORT FOR: //name// CC: FAM unknown LANI Avilez DATE OF SERVICE: 02/15/2019 CHIEF COMPLAINT: Chronic and severe low back pain with radiation to the left groin. Status post lumbar laminectomy and fusion. HISTORY OF PRESENT ILLNESS: The patient returns to the pain clinic today complaining of pain primarily into the right groin that follows an L1-L2, L2-L3 distribution. She has a recent MRI for my review. The MRI shows post-surgical changes involving the lumbar spine at multiple levels. There is a solitary right pedicle support bar with a screw in the pedicle of L3, L4, L5. There are significant degenerative changes throughout the lumbar spine resulting in bbxyltva-gq-ywiezx spinal canal stenosis at L1-L2; txep-mn-hzdgipwz right general, greater than left spinal stenosis at L2-L3; mild central stenosis at L5-S1 and left neural foraminal stenosis at L1-L2. There is moderate right neural foraminal stenosis seen at L2-L3. Bilateral stenosis at L4-L5 and L5-S1. In this multitude of findings, it appears to me that the most significant pain generator is at the L1-L2 level where she has significant stenosis. The area was narrowed enough and she has laminectomy above that I do not feel we can easily get into the central canal using a transforaminal or translaminar approach at L1-L2. I can enter, however, just above her fusion at L2-L3. With the likelihood that we get spread along the pedicle cephalad of cortisone, we may be able to provide her with some relief. She plans to see Dr. Bella further to discuss surgical options for treatment of this discomfort. PQRS REVIEW: She has osteoarthritis involving hands, also back. She has pain intensity of 4-6/10. She is a fall risk, having fallen in the past, but not in the last 3 months. She needs help standing and walking. She is on no blood thinners nor is she treated for hypertension. She is on opioid medication provided through our clinic. She is on methadone 5 mg 3 times daily, which has been helpful. Side effects have been managed. She is on an opioid agreement and understands the importance of safeguarding her medication and is grateful for the relief that it provides. She is much more active with medication that she would be without. She understands the opioid crisis in [place]. [address] [address] PAIN MANAGEMENT CONSULTATION Name: MARILYN BAILON Room #: REG [facility]#: [id number] Admission: 02/15/19 ������������������ Attend Phys: Terry Avilez MD Discharge: ������������������ Date of : 41 Report #: [id number] SOCIAL HISTORY: She denies use of tobacco, drinks alcohol in a social setting. PHYSICAL EXAMINATION: Blood pressure is 121/70, heart rate 60, and respirations 14. Her affect is depressed and discouraged because of her chronic pain. She moves from sitting to standing position. She walks with antalgic features. Lumbar range of motion is diminished in flexion, extension and rotation. Tenderness across the lumbosacral spine. Straight leg raising on the right reproduces pain into the groin. She has bilateral lower extremity weakness, worse with hip flexion and extension. Sensation is diminished in the lower extremities through the L4-L5, L5-S1 dermatomal distributions. IMPRESSION: 1. Post-laminectomy syndrome with radiculopathy, primarily involving symptoms in the right groin involving the L2 and some L1 as well as L3. 2. Management of high risk medications under terms of written agreement. She has medication now carrying her through March and does not need new prescriptions. 3. Situational depression. 4. Osteoarthritis. 5. History of bilateral total shoulder. 6. History of anterior cervical diskectomy and fusion. PROCEDURE: Left L2-L3 transforaminal epidural injection under fluoroscopic guidance. DESCRIPTION OF PROCEDURE: She was taken to fluoroscopic suite, placed prone, skin prepped with ChloraPrep. Skin anesthetized over the L2-L3 interspace on the left. Using triplanar fluoroscopic views, I advanced the needle into the neural foramen. 1 mL of Omnipaque was injected. Spread of dye was seen into the epidural space. This was restricted some by scar and the dye spread was not markedly cephalad, but there was some spread along the pedicle. It was extending in a cephalad direction and into the epidural space at that level. It was then followed by 3 mL of 0.5% lidocaine mixed with 80 mg of triamcinolone. She tolerated the procedure well. The local anesthetic did not provide dramatic relief in the recovery room. We will see how she does over the next few weeks. Followup visit planned in the pain clinic again in 1-2 months. We will continue her medication management per terms of our written agreement. ��������������������������������������������� ���������������������������������������� By: ��������������������������������������������� [id number] Terry Avilez MD /nt
[2019-02-15 10:26] VITALS: BP 121/70
--- NOTE | 2019-02-15 10:34 | NUR ---
Pain Clinic Assessment: 1. History of Osteoarthritis: BACK HANDS History of Rheumatoid Arthritis: Not Applicable 2. Height: 5 ft. 2 in. 157.5 cm. Weight: 172.8 lb. oz. 78.382 kg. Patient's BMI: 31.6 3. Vital Signs: BP: 121/70 Pulse: 60 Resp: 14 Temp: 02 Sat: 100 ECG Mon: 4. Pain Intensity: 4 5. Fall Risk: Dizziness: N Needs help standing or walking: Y Fallen in the last 3 months: N Fall risk comments: 6. Patient on Blood Thinner: None 7. History of Hypertension: N 8. Opioid Therapy greater than 6 weeks: Y Opiate Contract Signed: 02/28/16 9. Risk Assessment Tool Provided: Opioid Risk Tool 10. Functional Assessment Tool: 27 11. Recreational Drug Use: Never Drug Type: Tobacco Use: Never Smoker Tobacco Type: Amount or Packs/day: How Many Years: Alcohol Use: Yes Frequency: Quant:
== END | disposition home or self-care (01) ==
LOC: PAIN 07:00
DX: M54.16 Radiculopathy, lumbar region (principal); M96.1 Postlaminectomy syndrome, not elsewhere classified; M48.061 Spinal stenosis, lumbar region without neurogenic claudication; G89.29 Other chronic pain; M19.90 Unspecified osteoarthritis, unspecified site; F43.21 Adjustment disorder with depressed mood; Z79.891 Long term (current) use of opiate analgesic; Z98.890 Other specified postprocedural states; Z79.899 Other long term (current) drug therapy

== ENCOUNTER → 2019-05-06 | Outpatient (CLI) | payer OTHER ==
[~2019-05-06] VITALS: Ht 157.5 cm; Wt 76.6 kg
[~2019-05-06] MED LIST changes: +CLONAZEPAM 0.50.5 M1 PO
[2019-05-06 10:29] VITALS: BP 126/72
--- NOTE | 2019-05-06 10:40 | NUR ---
Pain Clinic Assessment: 1. History of Osteoarthritis: BACK HANDS History of Rheumatoid Arthritis: Not Applicable 2. Height: 5 ft. 2 in. 157.5 cm. Weight: 168.8 lb. oz. 76.567 kg. Patient's BMI: 30.9 3. Vital Signs: BP: 126/72 Pulse: 60 Resp: 14 Temp: 02 Sat: 100 ECG Mon: 4. Pain Intensity: 3-4 5. Fall Risk: Dizziness: N Needs help standing or walking: N Fallen in the last 3 months: N Fall risk comments: 6. Patient on Blood Thinner: None 7. History of Hypertension: N 8. Opioid Therapy greater than 6 weeks: Y Opiate Contract Signed: 02/28/16 9. Risk Assessment Tool Provided: Opioid Risk Tool 10. Functional Assessment Tool: 27 11. Recreational Drug Use: Never Drug Type: Tobacco Use: Never Smoker Tobacco Type: Amount or Packs/day: How Many Years: Alcohol Use: Yes Frequency: Weekly Quant: 3
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
== END ==
LOC: PAIN 06:55
DX: M54.16 Radiculopathy, lumbar region (principal); M96.1 Postlaminectomy syndrome, not elsewhere classified; G89.29 Other chronic pain; Z88.5 Allergy status to narcotic agent; Z88.8 Allergy status to other drugs, medicaments and biological substances; Z79.899 Other long term (current) drug therapy

== ENCOUNTER → 2019-08-05 | Outpatient (CLI) | payer OTHER ==
[~2019-08-05] VITALS: Ht 157.5 cm; Wt 79.3 kg
[~2019-08-05] MED LIST changes: +PERCOCET 10-321 EAC1 PO
[2019-08-05 09:23] VITALS: BP 121/59
--- NOTE | 2019-08-05 09:34 | NUR ---
Pain Clinic Assessment: 1. History of Osteoarthritis: BACK HANDS History of Rheumatoid Arthritis: Not Applicable 2. Height: 5 ft. 2 in. 157.5 cm. Weight: 174.8 lb. oz. 79.289 kg. Patient's BMI: 32.0 3. Vital Signs: BP: 121/59 Pulse: 58 Resp: 16 Temp: 02 Sat: 100 ECG Mon: 4. Pain Intensity: 3 5. Fall Risk: Dizziness: N Needs help standing or walking: N Fallen in the last 3 months: N Fall risk comments: 6. Patient on Blood Thinner: None 7. History of Hypertension: N 8. Opioid Therapy greater than 6 weeks: Y Opiate Contract Signed: 02/28/16 9. Risk Assessment Tool Provided: low-1 10. Functional Assessment Tool: 11. Recreational Drug Use: Never Drug Type: Tobacco Use: Never Smoker Tobacco Type: Amount or Packs/day: How Many Years: Alcohol Use: Yes Frequency: Monthly Quant: 2
--- NOTE | 2019-08-09 12:51 | HPC ---
[facility] [place] [address] PAIN MANAGEMENT CONSULTATION Name: MARILYN BAILON Room #: REG [facility]..#: [id number] Admission: 08/05/19 Attend Phys: Guillermina Perez Discharge: Date of : 41 Report #: [id number] THIS REPORT FOR: //name// CC: Guillermina Perez [facility] physician/PCP DATE OF SERVICE: 08/05/2019 CHIEF COMPLAINT: Chronic low back pain with radiculopathy, status post lumbar laminectomy and fusion. HISTORY OF PRESENT ILLNESS: This is a very pleasant 74-year-old female who returns to the pain clinic today for discussion about her medications and refills. She reports a pain score of 3/10 today. Currently, her pain is in her lower back, left hip and left groin. It is worse with walking and standing and weather changes that she feels that resting and lying down and her methadone have been helpful, though the patient has reported some shortness of breath that has started this summer. She is having a cardiac workup. She has had a chest x-ray performed, which was normal as well as an EKG that was normal per her report. She tells me she recently had a cardiac calcium scan done, has not had those results given to her yet, but she is wondering if it may be related to her methadone. The patient has been taking methadone for a significant time since 2014 per our chart notes, but she tells me that she has had shortness of breath when she has taken other narcotics such as hydrocodone and morphine in the past, wondering if she has developed this problem for methadone now, she is wondering about switching to oxycodone, which she has also taken in the past and had not had issues with. ALLERGIES: MORPHINE, REGLAN AND TRAMADOL. CURRENT LIST OF MEDICATIONS: Omeprazole, methadone 5 mg 3 times a day, ibuprofen, Crestor, Zanaflex, stool softener, Zantac, calcium, multivitamin, vitamin D, Synthroid, Mirapex and Neurontin. PATIENT'S PQRS: 1. She has a history of osteoarthritis in her lumbar spine and hands and bilateral hips. Denies any rheumatoid arthritis. 2. Height is 5 feet 2 inches, weight is 174, BMI is 32. 3. Vital signs 121/59, pulse is 58, respirations 16, oxygen sat is 100. 4. Pain score is 3/10. 5. Denies dizziness, does not need help walking or standing, has not fallen in the last 3 months. 6. The patient is not on any blood thinners, does not have a history of hypertension. Opioid therapy is greater than 6 weeks; therefore, an opioid signed contract is on the chart. 7. Risk assessment tool is low. [place] [address] PAIN MANAGEMENT CONSULTATION Name: MARILYN BAILON Room #: REG [facility] Aceves#: [id number] Admission: 08/05/19 Attend Phys: Guillermina Perez Discharge: Date of : 41 Report #: [id number] 8. Recreational drug use, she denies. She is not a smoker. Does drink alcohol. We did check the prescription monitoring system. The patient is filling appropriately for her medications. She is here to fill them on a timely fashion and there is a recent drug screen on the chart that is appropriate for her medications. PHYSICAL EXAMINATION: GENERAL: This is alert and orientated 74-year-old female who appears her stated age, placing her current pain score at 3/10 today. Her affect is appropriate. HEENT: Normocephalic, atraumatic. Extraocular eye muscles are intact. Mucous membranes are moist. NECK: Without adenopathy or JVD. HEART: Regular rhythm. LUNGS: Clear to auscultation. MUSCULOSKELETAL: Pain is across the lumbar spine, slight tenderness radiating into her left hip following the L4-L5 and L5-S1 dermatomal distribution. She has limited range of motion with flexion and extension and rotation of her lumbar spine from previous surgery. She walks with some antalgic features. Lower extremity strength judged to be 5/5 in all major muscle groups. IMPRESSION: 1. Post-laminectomy syndrome with radiculopathy. 2. Situational depression. 3. Osteoarthritis. 4. History of bilateral total shoulder. 5. History of anterior cervical diskectomy and fusion. 6. Management of high risk medications under terms of written opioid agreement. We reviewed the fact that opiate medications are being used to provide analgesia adequate to support activities of daily living, not attempting to achieve a specific pain score on the 0-10 Visual Analog Scale. The current opiate medications are providing sufficient analgesia to allow the patient to participate in activities of daily living. The patient is not exhibiting any aberrant behavior suggestive of drug diversion. The patient is not having any adverse reactions to medications. The patient is not suffering from daytime somnolence or mental acuity changes. The patient is managing opiate-induced constipation with appropriate qvvg-rtr-cekylrj agents and dietary considerations. The patient was counseled on concern for caution with operating a motor vehicle while using opiate medications. A physical exam was performed and the patient's functional status was evaluated. All patients with back pain were advised against the bed rest greater than 4 days and were advised to return to normal activities. Pain score assessment was noted and the treatment plan was reviewed with the patient. All current [facility] [address] [place] [address] PAIN MANAGEMENT CONSULTATION Name: MARILYN BAILON Room #: REG Al[facility] Aceves#: [id number] Admission: 08/05/19 Attend Phys: Guillermina TALA Perez Discharge: Date of : 41 Report #: [id number] medications, both prescribed and OTC were reviewed and reconciled on the electronic medical record. Tobacco screening was accomplished and smoking cessation was advised when indicated. BMI was noted and diet/exercise modification was recommended for all patients following outside normal parameters. I reviewed with the patient today their responsibilities to safeguard prescription medications, reviewed their responsibility to utilize medications only as prescribed by the physician. They are to seek and receive pain medications only from 1 physician group ([facility]). They are to use 1 pharmacy and keep the clinic informed if they change pharmacies. Their responsibilities include making followup visits in a timely fashion and to avoid abrupt discontinuation of medication usage. Their responsibilities further include bringing their medications (bottles from the pharmacy with residual pills) to the visit for possible confirmation of pill counts and the patient understands it is their responsibility to submit to random drug screens to ensure both that the medications prescribed are present, and that no other controlled substances are present. All prescriptions provided today were generated electronically. PLAN: 1. We discussed treatment options with the patient today. The patient has developed some shortness of breath, unsure if it is medication related. So, we will transition her off her methadone to oxycodone 10/325. The patient has been on this medication in the past without any difficulty. We looked at the conversion factors then we will start her at 4 tablets of oxycodone, which is according to the CDC guidelines at 60 morphine mEq that is what she was on with her methadone 5 mg 3 times a day was equivalent to 60 morphine mEq. The patient verbalizes understanding. She will have it filled today and transitioned by slowly decreasing her methadone from 3 tablets a day to 2 tablets a day, taking oxycodone and then to 1 tablet a day of methadone and then slowly off within the week. She will call back to report if her shortness of breath has been relieved. If it has no changes, she will be unable to return to the clinic and exchange her Percocet scripts for methadone again and continue seeking answers from her document review specialist. 2. The patient denies any problems with constipation or daytime sleepiness. 3. The patient will be seen in 3 months if no medication changes are needed, the patient understands this. 4. The patient is seen in collaboration with Dr. Terry Avilez who did see the patient as well today. <ELECTRONICALLY SIGNED> By: Guillermina Perez 08/09/19 1251 [id number] Guillermina Perez /roseann
== END ==
LOC: PAIN 06:51
DX: M54.16 Radiculopathy, lumbar region (principal); M43.26 Fusion of spine, lumbar region; M96.1 Postlaminectomy syndrome, not elsewhere classified; M19.90 Unspecified osteoarthritis, unspecified site; F43.21 Adjustment disorder with depressed mood; Z88.8 Allergy status to other drugs, medicaments and biological substances; Z79.899 Other long term (current) drug therapy

== ENCOUNTER → 2019-11-01 | Outpatient (CLI) | payer OTHER ==
[~2019-11-01] VITALS: Ht 157.5 cm; Wt 80.2 kg
[~2019-11-01] MED LIST changes: +MOBIC7.5 MG PO
[2019-11-01 11:10] VITALS: BP 132/65
--- NOTE | 2019-11-01 11:26 | NUR ---
Pain Clinic Assessment: 1. History of Osteoarthritis: BACK HANDS History of Rheumatoid Arthritis: Not Applicable 2. Height: 5 ft. 2 in. 157.5 cm. Weight: 176.8 lb. oz. 80.196 kg. Patient's BMI: 32.3 3. Vital Signs: BP: 132/65 Pulse: 60 Resp: 14 Temp: 02 Sat: 100 ECG Mon: 4. Pain Intensity: 3 5. Fall Risk: Dizziness: N Needs help standing or walking: N Fallen in the last 3 months: N Fall risk comments: 6. Patient on Blood Thinner: None 7. History of Hypertension: N 8. Opioid Therapy greater than 6 weeks: Y Opiate Contract Signed: 02/28/16 9. Risk Assessment Tool Provided: low-1 10. Functional Assessment Tool: 11. Recreational Drug Use: Never Drug Type: Tobacco Use: Never Smoker Tobacco Type: Amount or Packs/day: How Many Years: Alcohol Use: Yes Frequency: Weekly Quant: 1
--- NOTE | 2019-11-02 15:12 | HPC ---
[facility] [place] [address] PAIN MANAGEMENT CONSULTATION Name: MARILYN BAILON Room #: REG [facility]..#: [id number] Admission: 11/01/19 Attend Phys: Guillermina Perez Discharge: Date of : 41 Report #: [id number] THIS REPORT FOR: //name// CC: Guillermina Perez [facility] physician/PCP Deonna Browne DATE OF SERVICE: 11/01/2019 CHIEF COMPLAINT: Chronic low back pain with radiculopathy. HISTORY OF PRESENT ILLNESS: This is a very pleasant 74-year-old female, who returns to the Pain Clinic today for a refill of her medications that she uses to help treat her low back pain with radiculopathy. She has had 4 back surgeries in the past and continues to have low back pain that radiates into her left hip. Today, she reports a pain score of 3/10. She finds the methadone very beneficial in controlling most of her pain. She reports that weather changes have been aggravating her recently. She also has problems with walking and standing for a prolonged period of time. She denies any constipation issues from her medications. She feels that they are very beneficial as well as resting. The patient reports since the weather has been changing quite frequently, she has increased her use of ibuprofen. She is not having any stomach issues currently, but she is aware that she needs to be cautious of this. She also reports that she recently saw Dr. Long's nurse practitioner. They are trying to hold off on her fifth back surgery. She did have questions regarding spinal cord stimulator or a possible another injection to help with some of her pain. ALLERGIES: MORPHINE, HYDROCODONE, REGLAN and TRAMADOL. CURRENT LIST OF MEDICATIONS: Methadone 5 mg t.i.d., omeprazole, Crestor, tizanidine, stool softener, CPD hormones, multivitamin, vitamin D, Synthroid, Mirapex, gabapentin and ibuprofen. PQRS: 1. She has history of osteoarthritis in her back and spine. Denies any rheumatoid arthritis. 2. Height is 5 feet 2 inches, weight is 176, BMI is 32. 3. Vital signs 132/65, pulse is 60, respirations 14, oxygen sat is 100. 4. Pain score is 3/10. 5. Denies dizziness, does not need help walking or standing, has not fallen in the last 3 months. 6. The patient is not on any blood thinners and does not take medicine for hypertension. 7. Opioid therapy is greater than 6 weeks; therefore, [place] [address] PAIN MANAGEMENT CONSULTATION Name: MARILYN BAILON Room #: REG [facility]#: [id number] Admission: 11/01/19 Attend Phys: Guillermina Perez Discharge: Date of : 43 Report #: [id number] is on the chart. Risk assessment tool is low. Functional assessment is . 8. Recreational drug use, she denies. She is not a smoker and occasionally drinks alcohol. According to the prescription monitoring system, the patient is filling appropriately for her methadone. There is a recent drug screen on the chart that is appropriate as well. According to the CDC guidelines, her morphine milliequivalent is 45 MME per day. PHYSICAL EXAMINATION: GENERAL: This is alert and oriented 74-year-old female who appears her stated age, placing her current pain score at 3/10 today. Her affect is appropriate. HEENT: Normocephalic, atraumatic. Extraocular eye muscles are intact. Mucous membranes are intact. NECK: Without adenopathy or JVD. LUNGS: Clear to auscultation. MUSCULOSKELETAL: She moves from sitting to standing position. She walks with antalgic features. Her lumbar range of motion is diminished in flexion and extension and rotation. She has tenderness across the lumbosacral spine that radiates into her left hip. Sensation is diminished in her lower extremities through the L4-L5, L5-S1 dermatomal distribution. Her lower extremity strength is 5/5 in all major muscle groups. IMPRESSION: 1. Post-laminectomy syndrome with radiculopathy. 2. Osteoarthritis. 3. History of bilateral total shoulder repair. 4. History of anterior cervical diskectomy and fusion. 5. Management of high risk medications under terms of written opioid agreement. We reviewed the fact that opiate medications are being used to provide analgesia adequate to support activities of daily living, not attempting to achieve a specific pain score on the 0-10 Visual Analog Scale. The current opiate medications are providing sufficient analgesia to allow the patient to participate in activities of daily living. The patient is not exhibiting any aberrant behavior suggestive of drug diversion. The patient is not having any adverse reactions to medications. The patient is not suffering from daytime somnolence or mental acuity changes. The patient is managing opiate-induced constipation with appropriate [id number] agents and dietary considerations. The patient was counseled on concern for caution with operating a motor vehicle while using opiate medications. A physical exam was performed and the patient's functional status was evaluated. All patients with back pain were advised against the bed rest greater than 4 days and were advised to return to normal activities. Pain score assessment was noted and the treatment plan was reviewed with the patient. All current [address] [address] PAIN MANAGEMENT CONSULTATION Name: MARILYN BAILON Room #: REG [facility]#: [id number] Admission: 11/01/19 Attend Phys: Guillermina Perez Discharge: Date of : 43 Report #: [id number] medications, both prescribed and OTC were reviewed and reconciled on the electronic medical record. Tobacco screening was accomplished and smoking cessation was advised when indicated. BMI was noted and diet/exercise modification was recommended for all patients following outside normal parameters. I reviewed with the patient today their responsibilities to safeguard prescription medications, reviewed their responsibility to utilize medications only as prescribed by the physician. They are to seek and receive pain medications only from 1 physician group ( [facility]). They are to use 1 pharmacy and keep the clinic informed if they change pharmacies. Their responsibilities include making followup visits in a timely fashion and to avoid abrupt discontinuation of medication usage. Their responsibilities further include bringing their medications (bottles from the pharmacy with residual pills) to the visit for possible confirmation of pill counts and the patient understands it is their responsibility to submit to random drug screens to ensure both that the medications prescribed are present, and that no other controlled substances are present. All prescriptions provided today were generated electronically. PLAN: 1. We discussed treatment options with the patient today. The patient finds her methadone beneficial, with no side effects. We will refill 5 mg #90 for today for an 8-week release. 2. We talked about the side effects and possible GI complications of too much ibuprofen. The patient had tried meloxicam in the past. I would like to retrial this medication and see if it is more beneficial. It does have less GI side effects than straight ibuprofen. The patient encouraged to take one daily if she needs to. She is able to take two a day for a short duration. If she finds this beneficial, we will call in a 90-day. Currently, we will e-scribe 7.5 meloxicam, #60 with 2 additional refills. 3. We talked about treatment options. The patient recently saw Dr. Long's nurse practitioner about a possible fifth surgery. She would like to prolong the surgery if possible. We discussed spinal cord stimulator briefly. The patient knows she will not be able to have an MRI with that device implanted. We did discuss another epidural steroid injection. She found these very beneficial in the past. The past injection in January did not afford her as much relief as ones prior. She will consider this option if the weather does not subside and her pain increases. She will call for an appointment. 4. The patient is seen in collaboration today with Dr. Terry Avilez. <ELECTRONICALLY SIGNED> By: Guillermina Perez 11/02/19 1512 [id number] Guillermina Perez /roseann
== END ==
LOC: PAIN 06:56
DX: M96.1 Postlaminectomy syndrome, not elsewhere classified (principal); M19.90 Unspecified osteoarthritis, unspecified site; Z79.891 Long term (current) use of opiate analgesic

== ENCOUNTER → 2020-01-27 | Outpatient (CLI) | payer OTHER ==
[~2020-01-27] VITALS: Ht 152.4 cm; Wt 80.8 kg
[~2020-01-27] MED LIST changes: +HYDROXYZINE HCL25 M2 PO; +PROAIR HFA8.5 GM INH
--- NOTE | ~2020-01-27 | HPC ---
[facility] [address] [address] PAIN MANAGEMENT CONSULTATION Name: MARILYN BAILON Room #: REG [facility]#: [id number] Admission: 01/27/20 Attend Phys: Terry Avilez MD Discharge: Date of : 43 Report #: [id number] THIS REPORT FOR: cc: Fredrick Alexandra MD,Terry Ngo MD, MD ~ CC: Fredrick Avilez DATE OF SERVICE: 01/27/2020 Followup visit for chronic low back pain with radiculopathy, status post extensive lumbar laminectomy and fusion as well as thoracic and cervical spinal surgeries. The patient returns to pain clinic today for lumbar epidural injection. I have injected her above her fusion with good benefit in the past. Her pain is now returning. Last time I saw her was on 08/05/2019 and reviewed those injections. In addition to her pain, I provided for her methadone 5 mg 3 times daily. I will renew that medication for her under terms of our written opioid agreement. She carefully safeguards her medication. I reviewed her use on the prescription drug monitoring information and there are no unexpected entries. PQRS REVIEW: Positive for osteoarthritis. She has had bilateral knee replacements. She also has had bilateral shoulder replacements and left hip replacement. Her BMI is 34, blood pressure 125/77, heart rate is 60. Pain intensity 3/10. She is not a fall risk. She denies blood thinning medications or hypertension. She is on an opioid agreement and has completed an opioid risk tool scoring 2, which is considered low risk for addiction. Her functional assessment score is 40. She does not smoke. Drinks alcohol occasionally and socially. IMPRESSION: 1. Chronic low back pain with radiculopathy. Pain is mostly into the left hip in the anterior distribution of L3. 2. Severe multi-joint osteoarthritis. PROCEDURE: Epidural steroid injection L2-L3 under fluoroscopic guidance. DESCRIPTION OF PROCEDURE: She was taken to fluoroscopic suite after informed consent and placed in the prone position. Skin was prepped with ChloraPrep. Skin anesthetized over the L2-L3 interspace. A 20-gauge Tuohy epidural needle advanced on the first attempt in the epidural space with loss of resistance. There was no blood or CSF aspirated. A 1 mL of Omnipaque was injected. Good spread of dye observed in the epidural space followed by 3 mL of 0.5% lidocaine [address] [address] PAIN MANAGEMENT CONSULTATION Name: MARILYN BAILON Room #: REG [facility]#: [id number] Admission: 01/27/20 Attend Phys: Terry Avilez MD Discharge: Date of : 43 Report #: [id number] mixed with 80 mg of triamcinolone. She tolerated the procedure well. She was observed for 45 minutes and discharged. A followup visit scheduled on an as needed basis. Prescriptions were sent and again electronically for her methadone. She denies side effects, is grateful for the benefit that it provides and has improvement in day-to-day function. By: [id number] Terry Avilez MD /roseann
[2020-01-27 09:26] VITALS: BP 125/77
--- NOTE | 2020-01-27 09:41 | NUR ---
Pain Clinic Assessment: 1. History of Osteoarthritis: BACK HANDS History of Rheumatoid Arthritis: Not Applicable 2. Height: 5 ft. 2 in. 152.4 cm. Weight: 178.2 lb. oz. 80.831 kg. Patient's BMI: 34.8 3. Vital Signs: BP: 125/77 Pulse: 60 Resp: 16 Temp: 02 Sat: 99 ECG Mon: 4. Pain Intensity: 3 5. Fall Risk: Dizziness: N Needs help standing or walking: N Fallen in the last 3 months: N Fall risk comments: 6. Patient on Blood Thinner: None 7. History of Hypertension: N 8. Opioid Therapy greater than 6 weeks: Y Opiate Contract Signed: 02/28/16 9. Risk Assessment Tool Provided: low-2 10. Functional Assessment Tool: 11. Recreational Drug Use: Never Drug Type: Tobacco Use: Never Smoker Tobacco Type: Amount or Packs/day: How Many Years: Alcohol Use: Yes Frequency: Quant:
== END | disposition home or self-care (01) ==
LOC: PAIN 06:49
DX: M54.16 Radiculopathy, lumbar region (principal); G89.29 Other chronic pain; M19.90 Unspecified osteoarthritis, unspecified site; Z98.890 Other specified postprocedural states; Z96.653 Presence of artificial knee joint, bilateral; Z79.891 Long term (current) use of opiate analgesic; Z88.8 Allergy status to other drugs, medicaments and biological substances; Z79.899 Other long term (current) drug therapy

== ENCOUNTER → 2020-05-01 | Outpatient (CLI) | payer OTHER ==
[~2020-05-01] VITALS: Ht 157.5 cm; Wt 82.1 kg
[2020-05-01 09:44] VITALS: BP 137/70
--- NOTE | 2020-05-01 10:24 | NUR ---
Pain Clinic Assessment: 1. History of Osteoarthritis: BACK HANDS History of Rheumatoid Arthritis: Not Applicable 2. Height: 5 ft. 2 in. 157.5 cm. Weight: 181.0 lb. oz. 82.101 kg. Patient's BMI: 33.1 3. Vital Signs: BP: 137/70 Pulse: 64 Resp: 16 Temp: 02 Sat: 99 ECG Mon: 4. Pain Intensity: 5-6 5. Fall Risk: Dizziness: N Needs help standing or walking: N Fallen in the last 3 months: N Fall risk comments: 6. Patient on Blood Thinner: None 7. History of Hypertension: N 8. Opioid Therapy greater than 6 weeks: Y Opiate Contract Signed: 02/28/16 9. Risk Assessment Tool Provided: low-2 10. Functional Assessment Tool: 11. Recreational Drug Use: Never Drug Type: Tobacco Use: Never Smoker Tobacco Type: Amount or Packs/day: How Many Years: Alcohol Use: Yes Frequency: Quant:
--- NOTE | 2020-05-02 07:50 | HPC ---
[facility] [place] [address] PAIN MANAGEMENT CONSULTATION Name: MARILYN BAILON Room #: REG [facility]#: [id number] Admission: 05/01/20 Attend Phys: Guillermina Perez Discharge: Date of : 43 Report #: [id number] THIS REPORT FOR: cc: Fredrick Alexandra MD, John R. MD Hocker, Amanda CNS ~ CC: Terry Avilez MD DATE OF SERVICE: 05/01/2020 CHIEF COMPLAINT: Chronic low back pain with radiculopathy, status post lumbar laminectomy and fusion. HISTORY OF PRESENT ILLNESS: This is a 75-year-old patient who is well known to the pain clinic. She returns today for medication refills. She reports that she recently had a lumbar epidural injection in January by Dr. Terry Avilez. She states that it helped 60-70% for a few weeks, then she started yard work again in middle of January that has increased her pain, but she did state that it was beneficial during the time of her inactivity. She reports a pain score of 5 today. She reports that her pain is in her lower back that radiates into her thighs bilaterally. She does not have any pain or numbness and tingling in her lower part of her feet. She states she has been able to start riding her bike again, which she finds beneficial. She did state that in the middle of the afternoon, her pain does increase and therefore she does lie down, which is helpful. She finds that taking her pain medicine and doing all of her activities earlier in the day is favorable for her. Today, she would like refills of her methadone therapy. She does safeguard her medicines at all times. She does have some problems with constipation, thus she takes [id number] stool softeners and this does help relieve her constipation. The patient states she has spoken with Kayleigh, the nurse practitioner, at the neurosurgeon's office. She is considering another surgery but feels that at this time she will continue to have periodic injections and continue her medications. ALLERGIES: MORPHINE, HYDROCODONE, REGLAN and TRAMADOL. CURRENT LIST OF MEDICATIONS: Albuterol inhaler, hydroxyzine, methadone 5 mg t.i.d., omeprazole, Crestor, tizanidine, stool softener, CBD, hormones, multivitamin, vitamin D, Synthroid, Mirapex and gabapentin. PQRS: 1. She has osteoarthritis in her back and hands. Denies any rheumatoid arthritis. [address] [address] PAIN MANAGEMENT CONSULTATION Name: MARILYN BAILON Room #: REG [facility].#: [id number] Admission: 05/01/20 Attend Phys: Guillermina Perez Discharge: Date of : 43 Report #: [id number] 2. Height is 5 feet 2 inches, Weight is 181. 3. Vital signs 137/78, pulse is 64, respirations 14, oxygen sat is 99%. 4. Pain score is 5 to 6. 5. Denies dizziness, does not need help walking or standing, has not fallen in the last 3 months. 6. The patient is not on any blood thinners or does not take medicine for hypertension. 7. Opioid therapy is greater than 6 weeks; therefore, an opioid signed contract is on the chart. Risk assessment tool is low. Functional assessment is 40/70. 8. Recreational drug use, she denies. She is not a smoker and occasionally drinks alcohol. According to the prescription monitoring system, the patient is filling her medications appropriately. She is due to fill those today. According to the CDC guidelines, her morphine milliequivalent is 45 MME. We will check a random drug screen on this patient today since it has been greater than a year since our random screen, which was appropriate for her medications. PHYSICAL EXAMINATION: GENERAL: This is a well-developed, well-nourished, well-hydrated 75-year-old who appears her stated age. She is alert and orientated, placing her pain score of 5 today. HEENT: Normocephalic, atraumatic. Extraocular eye muscles are intact. Mucous membranes are moist. MUSCULOSKELETAL: She has pain in her lower back that radiates from the L2-L3 region, down into her bilateral thighs. Pain is increased with ambulation. She has an antalgic gait. She has limited range of motion in flexion and extension and rotation of her lumbar spine due to previous surgeries. IMPRESSION: 1. Chronic low back pain with radiculopathy at the L3 dermatomal distribution. 2. Severe multiple joint osteoarthritis. 3. History of bilateral total shoulder. 4. History of anterior cervical diskectomy and fusion. 5. Management of high risk medications under terms of written opioid agreement. PLAN: 1. We discussed treatment options with the patient today. We will refill her methadone 5 mg t.i.d. The patient finds these very beneficial in controlling her pain. We will have Dr. Terry Avilez send 90 pills for today, 4-week and 8-week release. 2. We did talk about previous injections. She feels these are beneficial. She will continue to have those spaced out periodically, trying to hold off on surgery as long as possible. 3. We did talk about activity. The patient states she has been slowly gaining weight. She states she just feels that she is not as active as she used to be, [facility] [address] [place] [address] PAIN MANAGEMENT CONSULTATION Name: ADAMARISMIGUELHUMBERTO KIESHA Room #: REG CK Aceves#: [id number] Admission: 05/01/20 Attend Phys: Guillermina Perez Discharge: Date of : 41 Report #: [id number] though she started riding her bike again. We encouraged her to continue this. 4. The patient is seen in collaboration with Dr. Terry Avilez today. We did collect a random drug screen. The patient will return in 3 months or as needed for another injection. <ELECTRONICALLY SIGNED> By: Guillermina Perez 05/02/20 0750 [id number] [id number] Guillermina Perez /nt
== END ==
LOC: PAIN 06:46
DX: M19.90 Unspecified osteoarthritis, unspecified site (principal); Z79.899 Other long term (current) drug therapy

== ENCOUNTER → 2020-07-31 | Outpatient (CLI) | payer OTHER ==
[~2020-07-31] VITALS: Ht 157.5 cm; Wt 81.6 kg
[~2020-07-31] MED LIST changes: +MELATONIN5 M4 PO
[2020-07-31 09:37] VITALS: BP 147/83
--- NOTE | 2020-07-31 15:26 | HPC ---
[facility] [place] [address] PAIN MANAGEMENT CONSULTATION Name: MARILYN BAILON Room #: REG CK Aceves#: [id number] Admission: 07/31/20 Attend Phys: Guillermina Perez Discharge: Date of : 41 Report #: [id number] THIS REPORT FOR: cc: Fredrick Alexandra MD, John R. MD Hocker, Amanda CNS ~ CC: Terry Avilez MD DATE OF SERVICE: 07/31/2020 CHIEF COMPLAINT: Chronic low back pain with radiculopathy, status post lumbar laminectomy and fusions. HISTORY OF PRESENT ILLNESS: This is a 75-year-old female who returns to the pain clinic today to discuss her ongoing pain issues. The patient reports that she recently had an MRI of her right hip as well as a lumbar spine MRI. We have been unable to obtain those records. She states she is going to see Dr. Long's nurse practitioner later this week to discuss possible surgeries. She would also like to discuss a possible injection by Dr. Avilez. The patient is reporting her pain a 6/10 in her low back that is radiating into her right buttock. It is stiff, achy, and dull at times. She believes that gardening, bending over and prolonged walking have increased her pain. She states at times she does use a cane when she is walking. She feels the medication as well as resting and sitting down are beneficial. She is considering having another surgery if her spinal stenosis has worsened. She feels that the pain continues to increase and she is not able to function as well as she used to. She denies any problems with incontinence or numbness in her legs presently. ALLERGIES: MORPHINE, HYDROCODONE, REGLAN, AND TRAMADOL. CURRENT LIST OF MEDICATIONS: Methadone 5 mg t.i.d., albuterol, hydroxyzine, omeprazole, Crestor, Zanaflex, Colace, CPD hormones, multivitamin, vitamin D, Synthroid, Mirapex and gabapentin. PQRS: 1. She has osteoarthritis in her spine as well as her hands. Denies being treated for rheumatoid arthritis. 2. Height is 5 feet 2 inches, weight is 180, BMI is 32. 3. Vital signs; blood pressure 147/83, pulse is 83, respirations 18, oxygen sat is 100, pain score is 6/10. 4. Fall risk. Denies dizziness, does not need help walking or standing. Occasionally uses a cane, has not fallen in the last 3 months. The patient is not on any blood thinners or medicine for hypertension. 5. Her opioid therapy is greater than 6 weeks; therefore, an opioid signed contract is on the chart. Risk assessment is low. [place] [address] PAIN MANAGEMENT CONSULTATION Name: MARILYN BAILON Room #: REG Alida Aceves#: [id number] Admission: 07/31/20 Attend Phys: Guillermina Perez Discharge: Date of : 43 Report #: [id number] 40/70. 6. Recreational drug use, she denies. She is not a smoker and occasionally drinks alcohol. According to the prescription monitoring system, the patient is filling appropriately for her medications in a timely fashion. She is due to fill her methadone today. Her morphine milliequivalent is 45 MME. There is a recent drug screen on the chart that is appropriate as well for her medications. PHYSICAL EXAMINATION: GENERAL: This is an alert and orientated 75-year-old female who appears her stated age, placing her current pain score today at 6/10. HEENT: Normocephalic, atraumatic. Extraocular eye muscles are intact. Mucous membranes are moist. MUSCULOSKELETAL: The patient has tenderness across her scar is in her lower back region. She has right leg pain that radiates into her buttock. It is not into her legs currently. She has decreased sensation in her lower extremities. She is walking with a slightly antalgic gait. She has limited range of motion, flexion, extension, and rotation of the lumbar spine due to previous surgeries. Straight leg raising on the right reproduces pain in her right buttock. IMPRESSION: 1. Post-laminectomy syndrome with radiculopathy. 2. Management of high risk medications under terms of written opioid agreement. 3. Situational depression. 4. Osteoarthritis. 5. History of anterior cervical diskectomy and fusion. PLAN: 1. We discussed treatment options with the patient today. The patient has recently had a new MRI of her lumbar spine and right hip. We have been unable to obtain those though we did request them. The patient is seeing the nurse practitioner at Dr. Long's office this week. She will obtain those records and bring them to an appointment with Dr. Avilez on 08/10/2020. At that time, Dr. Avilez may possibly repeat a lumbar epidural steroid injection. I believe most of her pain today is located in the L5-S1 dermatomal distribution, though in the past she has had pain at the L1-L2 distribution as well. We will see if Dr. Long's office wants a specific injection to be performed. 2. We did talk about anti-inflammatories. The patient is not taking them on a regular basis. I beleive that this adjunct to her methadone that may be beneficial. The patient does have some meloxicam at home that she will trial on a daily basis for at least a week. If she finds this beneficial in decreasing some of her pain, we will call a prescription in. 3. I will have Dr. Terry Avilez send electronically her methadone 5 mg t.i.d. The patient finds this is effective, though at times it has not been lasting as long as she would like. At this time, she does not want to try and increase in [facility] [address] [place] [address] PAIN MANAGEMENT CONSULTATION Name: MARILYN BAILON [facility] #: [facility] [id number] Admission: 07/31/20 Attend Phys: Guillermina Perez Discharge: Date of : 43 Report #: [id number] pain medications. Scripts sent for #90 of 5 mg methadone for 3 months to her pharmacy by Dr. Avilez. 4. The patient will follow up with our office on 08/10/2020. The patient is seen today in collaboration with Dr. Terry Avilez. <ELECTRONICALLY SIGNED> By: Guillermina Perez 07/31/20 1526 [id number] Guillermina Perez /nt
== END ==
LOC: PAIN 06:55
PROVIDERS: ATTEND Clinical Nurse Specialist Adult Health
DX: M54.16 Radiculopathy, lumbar region (principal); M96.1 Postlaminectomy syndrome, not elsewhere classified; M19.90 Unspecified osteoarthritis, unspecified site; F32.89 Other specified depressive episodes; F11.20 Opioid dependence, uncomplicated; Z87.39 Personal history of other diseases of the musculoskeletal system and connective tissue; Z79.899 Other long term (current) drug therapy

== ENCOUNTER → 2020-08-10 | Outpatient (CLI) | payer OTHER ==
[~2020-08-10] VITALS: Ht 157.5 cm; Wt 83.7 kg
--- NOTE | ~2020-08-10 | HPC ---
[facility] [place] [address] PAIN MANAGEMENT CONSULTATION Name: MARILYN BAILON Room #: REG CK Ketan#: [id number] Admission: 08/10/20 Attend Phys: Terry Avilez MD Discharge: Date of : 43 Report #: [id number] THIS REPORT FOR: cc: Fredrick Alexandra MD, John R. MD Morgan, Richard L. MD ~ CC: Dr. Fredrick Browne RN DATE OF SERVICE: 08/10/2020 The patient returns to pain clinic today for sacroiliac joint pain. Pain is well-localized over the right sacroiliac joint. She had a prior fusion. We discussed the fact that the sacroiliac joint often times becomes uncomfortable and there is decreased mobility in the spine above and responds nicely to injections. She is here today for an injection recommended by Dr. Long and his team. Most of her pain is in the right buttock, but she has other pains, they are diffuse and related to her multiple spinal issues. She has had several surgeries and she tells me today that "I think I am in for one more surgery." She has been fused in the lower lumbar region, has had decompression of the thoracic region. She discussed with Deonna Browne, possibility of a spinal cord stimulator, but it would be difficult to place percutaneous leads due to her prior thoracic surgery. She has an MRI, which is reviewed, showing multiple levels of degenerative changes throughout her spine. There are certainly multiple areas of pathology, including both central and multiple level spinal stenosis, scoliosis and listhesis, which appears stable. PQRS: Positive for significant back arthritis and spondylosis. She has pain that she complains of in her hands, which is also likely arthritic. Her BMI is 38. Her blood pressure 153/82, pulse is 80, respirations 18, O2 sat 100, pain intensity 5/10. She needs help walking and standing, but has not fallen recently within the last 3 months. No use of blood thinning medications or antihypertensives. She is on an opioid agreement with our clinic, which we follow carefully to provide her with opioids. She was last seen 1 week ago. She is here today for an injection of the sacroiliac joint. PHYSICAL EXAMINATION: Does reveal quite significant tenderness over the right [facility] [address] [place] [address] PAIN MANAGEMENT CONSULTATION Name: MARILYN BAILON Room #: REG CK Ketan#: [id number] Admission: 08/10/20 Attend Phys: Terry Avilez MD Discharge: Date of : 43 Report #: [id number] sacroiliac joint. It is localized in the inferior portion of the joint. TONYA crossover reproduces pain. IMPRESSION: Sacroiliitis. PROCEDURE: Sacroiliac joint under fluoroscopic guidance. PROCEDURE IN DETAIL: After informed consent, she was taken to fluoroscopic suite. She was placed prone, skin prepped with ChloraPrep. Skin anesthetized on the right. A 22-gauge spinal needle was advanced into the posterior inferior capsule and after negative aspiration, I injected 0.25 mL of Omnipaque to demonstrate an excellent arthrogram, was followed then by 2 mL of 0.5% bupivacaine mixed with 40 mg of triamcinolone. She tolerated the procedure well and there were no complications. Followup visit planned as needed. By: [id number] Terry Avilez MD /nt
[2020-08-10 13:12] VITALS: BP 153/82
--- NOTE | 2020-08-10 13:23 | NUR ---
Pain Clinic Assessment: 1. History of Osteoarthritis: BACK HANDS History of Rheumatoid Arthritis: DENIES 2. Height: 5 ft. 2 in. 157.5 cm. Weight: 184.6 lb. oz. 83.734 kg. Patient's BMI: 33.8 3. Vital Signs: BP: 153/82 Pulse: 80 Resp: 18 Temp: 02 Sat: 100 ECG Mon: 4. Pain Intensity: 5 5. Fall Risk: Dizziness: N Needs help standing or walking: Y Fallen in the last 3 months: N Fall risk comments: 6. Patient on Blood Thinner: None 7. History of Hypertension: N 8. Opioid Therapy greater than 6 weeks: Y Opiate Contract Signed: 02/28/16 9. Risk Assessment Tool Provided: low-2 10. Functional Assessment Tool: 11. Recreational Drug Use: Never Drug Type: Tobacco Use: Never Smoker Tobacco Type: Amount or Packs/day: How Many Years: Alcohol Use: Yes Frequency: Weekly Quant:
== END | disposition home or self-care (01) ==
LOC: PAIN 06:46
PROVIDERS: ATTEND Anesthesiology Pain Medicine
DX: M53.3 Sacrococcygeal disorders, not elsewhere classified (principal); G89.29 Other chronic pain; Z98.890 Other specified postprocedural states; Z79.899 Other long term (current) drug therapy; Z79.891 Long term (current) use of opiate analgesic; Z88.8 Allergy status to other drugs, medicaments and biological substances; M19.90 Unspecified osteoarthritis, unspecified site

== ENCOUNTER → 2020-10-30 | Outpatient (CLI) | payer OTHER ==
[~2020-10-30] VITALS: Ht 157.5 cm; Wt 81.5 kg
[~2020-10-30] MED LIST changes: +PHENTERMINE H37.5 MG PO
[2020-10-30 10:56] VITALS: BP 130/63
--- NOTE | 2020-10-30 11:22 | NUR ---
Pain Clinic Assessment: 1. History of Osteoarthritis: BACK HANDS History of Rheumatoid Arthritis: DENIES 2. Height: 5 ft. 2 in. 157.5 cm. Weight: 179.6 lb. oz. 81.466 kg. Patient's BMI: 32.8 3. Vital Signs: BP: 130/63 Pulse: 75 Resp: 16 Temp: 02 Sat: 99 ECG Mon: 4. Pain Intensity: 4 5. Fall Risk: Dizziness: N Needs help standing or walking: N Fallen in the last 3 months: N Fall risk comments: 6. Patient on Blood Thinner: None 7. History of Hypertension: N 8. Opioid Therapy greater than 6 weeks: Y Opiate Contract Signed: 02/28/16 9. Risk Assessment Tool Provided: low-2 10. Functional Assessment Tool: 11. Recreational Drug Use: Never Drug Type: Tobacco Use: Never Smoker Tobacco Type: Amount or Packs/day: How Many Years: Alcohol Use: Yes Frequency: Quant:
--- NOTE | 2020-10-31 13:58 | HPC ---
[facility] [address] [place] [address] PAIN MANAGEMENT CONSULTATION Name: MARILYN BAILON Room #: REG CK Ketan#: [id number] Admission: 10/30/20 Attend Phys: Guillermina Perez Discharge: Date of : 43 Report #: [id number] THIS REPORT FOR: cc: Fredrick Alexandra MD, John R. MD Hocker,Guillermina EDGAR ~ CC: Guillermina Avilez MD DATE OF SERVICE: 10/30/2020 CHIEF COMPLAINT: Chronic low back pain with radiculopathy, status post lumbar laminectomy and fusion. HISTORY OF PRESENT ILLNESS: This is a very pleasant 75-year-old female who returns to the pain clinic today. She is reporting continued increasing pain in her right buttock that does radiate down her right leg. At times, she reports it is very painful to walk, finding herself doing less activity than she had in the past. Dr. Terry Avilez did perform a sacroiliac joint injection in August, which she found no relief. She has returned to see Kayleigh, the nurse practitioner, at the neurosurgeon's office. They have ordered her physical therapy, which she has not started. They discuss some form of belt for her to try. The patient will call there this week to try to initiate this physical therapy. The patient states that any activity of walking, standing, working in her yard does increase her pain. There is a constant, dull, aching pain. She finds herself sitting in the afternoon and resting because the pain has gotten worse. She is thankful for the methadone that she does take and is wondering about any additional medications or options that we have for her today. She denies significant constipation or daytime somnolence as a result of her medications. ALLERGIES: MORPHINE, HYDROCODONE, REGLAN AND TRAMADOL. CURRENT MEDICATIONS: Phentermine, methadone 5 mg t.i.d., melatonin, albuterol, hydralazine, omeprazole, Crestor, tizanidine, stool softener, CPD hormones, multivitamin, vitamin D, Synthroid, Mirapex and Neurontin. PATIENT'S PQRS: 1. The patient has osteoarthritis and spondylosis in her back and hands. She denies any rheumatoid arthritis. 2. Height is 5 feet 2 inches, weight is 179. BMI is 32. 3. Vital signs 130/63, pulse is 75, respirations 16, oxygen sat is 99%. 4. Pain score is 4/10. 5. Denies dizziness. Does not need help walking or standing. Has not fallen in the last [address] [address] PAIN MANAGEMENT CONSULTATION Name: MARILYN BAILON Room #: REG Alida Eller.#: [id number] Admission: 10/30/20 Attend Phys: Guillermina Perez Discharge: Date of : 43 Report #: [id number] 6. The patient is not on any blood thinners or medicine for hypertension. 7. Opioid therapy is greater than 6 weeks; therefore, an opioid signed contract is on the chart. Risk assessment is low. Functional assessment is 41/70. 8. Recreational drug use, she denies. She is not a smoker and occasionally drinks alcohol. According to the prescription monitoring system, she is due to fill her methadone today. Her morphine mEq is 45 MME, filling in a timely fashion. PHYSICAL EXAMINATION: GENERAL: This is an alert and orientated, well-developed, well-nourished, 75-year-old, who is rating her pain score at 4/10 today. HEENT: Normocephalic, atraumatic. Extraocular eye muscles are intact. Mucous membranes are moist. She is wearing a mask. MUSCULOSKELETAL: The patient has tenderness in the lower sacral region of her back radiating down the right leg. She has an antalgic gait with increasing pain with ambulation. She moves from sitting to standing, with difficulty using the armrest. She has limited range of motion in her lumbar spine due to previous surgeries. Straight leg raising does increase her pain on the right. IMPRESSION: 1. Post-laminectomy syndrome with radiculopathy. 2. Management of high risk medications under terms of written opioid agreement. 3. Osteoarthritis. 4. History of anterior cervical diskectomy and fusion. 5. Situational depression. 6. The patient has scoliosis without kyphosis: We reviewed the fact that opiate medications are being used to provide analgesia adequate to support activities of daily living, not attempting to achieve a specific pain score on the 0-10 Visual Analog Scale. The current opiate medications are providing sufficient analgesia to allow the patient to participate in activities of daily living. The patient is not exhibiting any aberrant behavior suggestive of drug diversion. The patient is not having any adverse reactions to medications. The patient is not suffering from daytime somnolence or mental acuity changes. The patient is managing opiate-induced constipation with appropriate [id number] agents and dietary considerations. The patient was counseled on concern for caution with operating a motor vehicle while using opiate medications. A physical exam was performed and the patient's functional status was evaluated. All patients with back pain were advised against the bed rest greater than 4 days and were advised to return to normal activities. Pain score assessment was noted and the treatment plan was reviewed with the patient. All current medications, both prescribed and OTC were reviewed and reconciled on the electronic medical record. Tobacco screening was accomplished and smoking [facility] [address] [place] [address] PAIN MANAGEMENT CONSULTATION Name: MARILYN BAILON Room #: REG [facility]#: [id number] Admission: 10/30/20 Attend Phys: Guillermina Perez Discharge: Date of : 43 Report #: [id number] cessation was advised when indicated. BMI was noted and diet/exercise modification was recommended for all patients following outside normal parameters. I reviewed with the patient today their responsibilities to safeguard prescription medications, reviewed their responsibility to utilize medications only as prescribed by the physician. They are to seek and receive pain medications only from 1 physician group ( [facility]). They are to use 1 pharmacy and keep the clinic informed if they change pharmacies. Their responsibilities include making followup visits in a timely fashion and to avoid abrupt discontinuation of medication usage. Their responsibilities further include bringing their medications (bottles from the pharmacy with residual pills) to the visit for possible confirmation of pill counts and the patient understands it is their responsibility to submit to random drug screens to ensure both that the medications prescribed are present, and that no other controlled substances are present. All prescriptions provided today were generated electronically. PLAN 1. We discussed treatment options with the patient today. Unfortunately, the sacroiliac joint injections Dr. Avilez performed was not beneficial. The patient continues to have ongoing sciatic pain, is going to start physical therapy and obtain equipment of a belt. She will call Kayleigh, the nurse practitioner, at Dr. Long's office to obtain the name of the therapist since she has not heard anything. She would like to get this therapy started. She does continue to do stretching exercises at home. 2. We did discuss her increasing pain. We do follow the CDC guidelines about lowest most effective dose. Currently, the patient is at 45 MME but she is unable to complete many things she enjoys due to increasing pain. I think she may benefit from a small amount of breakthrough pain medication that she may take in addition to her methadone if she is going to be active in the yard, which she does find enjoyment in. We will trial a short script of oxycodone; 5/325, #60 will be given. The patient will utilize this in the next 3 months and see if this is beneficial in reducing her pain. We will continue her methadone 5 mg tablets, #90, sending these electronically as well. 3. We will follow up with the patient in 3 months. She will notify our office if there are any changes that Dr. Long or Kayleigh do have planned for her. The patient is seen today in collaboration with Dr. Terry Avilez. <ELECTRONICALLY SIGNED> By: Guillermina Perez 10/31/20 1358 [id number] Guillermina Perez /nt
== END ==
LOC: PAIN 06:45
PROVIDERS: ATTEND Clinical Nurse Specialist Adult Health
DX: M54.16 Radiculopathy, lumbar region (principal); G89.29 Other chronic pain; M96.1 Postlaminectomy syndrome, not elsewhere classified; M43.26 Fusion of spine, lumbar region; M19.90 Unspecified osteoarthritis, unspecified site; F11.20 Opioid dependence, uncomplicated; F32.9 Major depressive disorder, single episode, unspecified; Z87.39 Personal history of other diseases of the musculoskeletal system and connective tissue

== ENCOUNTER → 2021-02-01 | Outpatient (CLI) | payer OTHER ==
[~2021-02-01] VITALS: Ht 157.5 cm; Wt 82.1 kg
[~2021-02-01] MED LIST changes: +OXYCODONE-APAP1 EAC4 PO
[2021-02-01 09:32] VITALS: BP 127/70
--- NOTE | 2021-02-01 09:41 | NUR ---
Pain Clinic Assessment: 1. History of Osteoarthritis: BACK HANDS History of Rheumatoid Arthritis: DENIES 2. Height: 5 ft. 2 in. 157.5 cm. Weight: 181.0 lb. oz. 82.101 kg. Patient's BMI: 33.1 3. Vital Signs: BP: 127/70 Pulse: 73 Resp: 16 Temp: 02 Sat: 97 ECG Mon: 4. Pain Intensity: 4 5. Fall Risk: Dizziness: N Needs help standing or walking: Y Fallen in the last 3 months: N Fall risk comments: 6. Patient on Blood Thinner: None 7. History of Hypertension: N 8. Opioid Therapy greater than 6 weeks: Y Opiate Contract Signed: 02/28/16 9. Risk Assessment Tool Provided: low-2 10. Functional Assessment Tool: 11. Recreational Drug Use: Never Drug Type: Tobacco Use: Never Smoker Tobacco Type: Amount or Packs/day: How Many Years: Alcohol Use: Yes Frequency: Weekly Quant: 1-2
--- NOTE | 2021-02-01 12:57 | HPC ---
[facility] [address] [address] PAIN MANAGEMENT CONSULTATION Name: MARILYN BAILON Room #: REG CK [facility]#: [id number] Admission: 02/01/21 Attend Phys: Guillermina Perez Discharge: Date of : 41 Report #: [id number] THIS REPORT FOR: cc: Fredrick Alexandra MD, John R. MD Hocker,Guillermina EDGAR ~ DATE OF SERVICE: 02/01/2021 CHIEF COMPLAINT: Chronic low back pain with radiculopathy, status post lumbar laminectomy and fusion. HISTORY OF PRESENT ILLNESS: This is a pleasant 75-year-old female who returns to the pain clinic today for renewal of her medications. Today, she reports continued ongoing low back pain that does radiate into her right leg and buttock as a constant, aching, dull pain. She reports she did not start any physical therapy since our last visit that has seen a chiropractor on several occasions. She did not find it was beneficial in helping to reduce any of her pain unfortunately. Today, she is reporting a pain score of 4/10. It is most significantly with walking and standing. She is utilizing a cane today. Her medication and resting is beneficial. The patient reports that the oxycodone that we offered her to take prior to any significant activity has been beneficial in helping reduce some of her discomfort. The patient does report she developed Rojas's palsy in December. Initially, she thought she was having a stroke went to the Emergency Room. She was worked up for a cerebrovascular accident, but it was later determined she did have Rojas's palsy on her right side of her face. She is currently on prednisone and had taken an antiviral medication. She has a followup with neurologist later regarding this new diagnosis. ALLERGIES: MORPHINE, HYDROCODONE, REGLAN, AND TRAMADOL. CURRENT LIST OF MEDICATIONS: Methadone 5 mg t.i.d., oxycodone p.r.n., phentermine, melatonin, ProAir, hydralazine, omeprazole, Crestor, Zanaflex, Colace, CPD hormones, multivitamin, vitamin D, levothyroxine, Mirapex, Neurontin, and prednisone. PQRS: 1. She has osteoarthritic changes in her spine as well as her hands. Denies any rheumatoid arthritis. 2. Height 5 feet 2 inches, weight is 181, BMI is 33. 3. Vital signs; blood pressure 127/70, pulse is 73, respirations 16, oxygen sat is 97%. 4. Pain score is 4/10. [place] [address] PAIN MANAGEMENT CONSULTATION Name: MARILYN BAILON Room #: REG [facility] Rafita.#: [id number] Admission: 02/01/21 Attend Phys: Guillermina Perez Discharge: Date of : 41 Report #: [id number] 5. Denies dizziness, does utilize a cane for ambulation and has not fallen in the last 3 months. 6. The patient is on no blood thinners or medications for hypertension. 7. Opioid therapy is greater than 6 weeks; therefore, an opioid signed contract is on the chart. Risk assessment is low. Functional assessment is 41/70. 8. Recreational drug use, she denies. She is not a smoker and occasionally drinks alcohol. According to the prescription monitoring system, the patient is filling appropriately. She is due to fill this weekend for her opioids. She is closely monitored. PHYSICAL EXAMINATION: GENERAL: This is alert and orientated, well-developed, well-nourished 75-year-old female who appears her stated age, rating her pain score 4/10. HEENT: She has right-sided facial drooping and a swollen upper right eyelid. She is drooling on the right side of her mouth consistent with Rojas's palsy. The patient is wearing a mask. MUSCULOSKELETAL: She has tenderness in the lumbosacral region, radiates into her sacroiliac joint down her right leg. She has an antalgic gait and uses a cane for ambulation. Straight leg raising positive on the right. Lower extremity strength is symmetrical at 5/5. IMPRESSION: 1. Post-laminectomy syndrome with radiculopathy. 2. Osteoarthritis. 3. History of anterior cervical diskectomy and fusion. 4. Situational depression. 5. Scoliosis. 6. 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 7. Complicated medical management under written opioid agreement for scheduled medications. We reviewed the fact that opiate medications are being used to provide analgesia adequate to support activities of daily living, not attempting to achieve a specific pain score on the 0-10 Visual Analog Scale. The current opiate medications are providing sufficient analgesia to allow the patient to participate in activities of daily living. The patient is not exhibiting any aberrant behavior suggestive of drug diversion. The patient is not having any adverse reactions to medications. The patient is not suffering from daytime somnolence or mental acuity changes. The patient is managing opiate-induced constipation with appropriate [id number]-[id number] agents and dietary considerations. The patient was counseled on concern for caution with operating a motor vehicle while using opiate medications. PLAN: [address] [address] PAIN MANAGEMENT CONSULTATION Name: MARILYN BAILON Room #: REG CLI [facility]#: [id number] Admission: 02/01/21 Attend Phys: Guillermina Perez Discharge: Date of : 41 Report #: [id number] 1. We discussed treatment options with the patient today. The patient finds her methadone beneficial and has found the oxycodone that she takes for severe breakthrough pain beneficial as well. She states that she is working in the yard, which she is about to start increasing that activity. She will take this medication prophylactically and is hopeful that will continue to help. We will send her methadone electronically today by Dr. Terry Avilez for 5 mg #90, to be released 02/03, 03/02, and 03/30. One new prescription will be sent for her oxycodone 5/325, #60. 2. We did discuss the COVID vaccine. The patient is hopeful to have this in the next few weeks. I encouraged her to take Paulette her caregiver along with her in the hopes that she will be vaccinated the same time. I did reiterate that she does need to ask her neurologist before she is vaccinated due to her recent diagnosis with Rojas's palsy. The patient will call them to get an authorization to take the vaccine. 3. The patient will return in 3 months or as needed if she needs an injection from Dr. Terry Avilez. The patient is seen today in collaboration with Dr. Terry Avilez. Time spent with the patient in consultation today 17 minutes. Prior to the appointment, I spent time reviewing the chart and pertinent medical documentation including physician notes and imaging. Time also spent reviewing prescription monitoring system, side effects of medication, related care, sending scripts electronically with collaborated physician and documentation of at least 15 minutes. Total time spent 32 minutes. <ELECTRONICALLY SIGNED> By: Guillermina Perez 02/01/21 [id number] Guillermina Perez /nt
== END ==
LOC: PAIN 06:42
PROVIDERS: ATTEND Clinical Nurse Specialist Adult Health
DX: M54.16 Radiculopathy, lumbar region (principal); M19.90 Unspecified osteoarthritis, unspecified site; F32.9 Major depressive disorder, single episode, unspecified; M41.9 Scoliosis, unspecified; Z87.39 Personal history of other diseases of the musculoskeletal system and connective tissue; Z88.8 Allergy status to other drugs, medicaments and biological substances; Z79.899 Other long term (current) drug therapy

== ENCOUNTER → 2021-04-26 | Outpatient (CLI) | payer OTHER ==
[~2021-04-26] VITALS: Ht 157.5 cm; Wt 82.1 kg
[2021-04-26 12:46] VITALS: BP 122/68
--- NOTE | 2021-04-26 12:52 | NUR ---
Pain Clinic Assessment: 1. History of Osteoarthritis: BACK HANDS History of Rheumatoid Arthritis: DENIES 2. Height: 5 ft. 2 in. 157.5 cm. Weight: 181.1 lb. oz. 82.146 kg. Patient's BMI: 33.1 3. Vital Signs: BP: 122/68 Pulse: 74 Resp: 18 Temp: 02 Sat: 100 ECG Mon: 4. Pain Intensity: 3 5. Fall Risk: Dizziness: N Needs help standing or walking: N Fallen in the last 3 months: Y Fall risk comments: 6. Patient on Blood Thinner: None 7. History of Hypertension: N 8. Opioid Therapy greater than 6 weeks: Y Opiate Contract Signed: 02/28/16 9. Risk Assessment Tool Provided: low-2 10. Functional Assessment Tool: 11. Recreational Drug Use: Never Drug Type: Tobacco Use: Never Smoker Tobacco Type: Amount or Packs/day: How Many Years: Alcohol Use: Yes Frequency: Weekly Quant: FEW TIMES A WEEK
== END ==
LOC: PAIN 10:38
PROVIDERS: ATTEND Clinical Nurse Specialist Adult Health
DX: G51.0 Bell's palsy (principal); M19.90 Unspecified osteoarthritis, unspecified site; F32.9 Major depressive disorder, single episode, unspecified; M41.9 Scoliosis, unspecified; Z79.891 Long term (current) use of opiate analgesic; Z79.899 Other long term (current) drug therapy

== ENCOUNTER → 2021-07-02 | Outpatient (CLI) | payer OTHER ==
[~2021-07-02] VITALS: Ht 157.5 cm; Wt 82.6 kg
[2021-07-02 08:52] VITALS: BP 130/89
--- NOTE | 2021-07-02 09:05 | NUR ---
Pain Clinic Assessment: 1. History of Osteoarthritis: BACK HANDS History of Rheumatoid Arthritis: DENIES 2. Height: 5 ft. 2 in. 157.5 cm. Weight: 182.0 lb. oz. 82.555 kg. Patient's BMI: 33.3 3. Vital Signs: BP: 130/89 Pulse: 76 Resp: 16 Temp: 02 Sat: 99 ECG Mon: 4. Pain Intensity: 3 5. Fall Risk: Dizziness: N Needs help standing or walking: N Fallen in the last 3 months: N Fall risk comments: 6. Patient on Blood Thinner: None 7. History of Hypertension: N 8. Opioid Therapy greater than 6 weeks: Y Opiate Contract Signed: 02/28/16 9. Risk Assessment Tool Provided: low-2 10. Functional Assessment Tool: 11. Recreational Drug Use: Never Drug Type: Tobacco Use: Never Smoker Tobacco Type: Amount or Packs/day: How Many Years: Alcohol Use: Yes Frequency: Quant:
== END ==
LOC: PAIN 06:56
PROVIDERS: ATTEND Clinical Nurse Specialist Adult Health
DX: M96.1 Postlaminectomy syndrome, not elsewhere classified (principal); M19.90 Unspecified osteoarthritis, unspecified site; F32.9 Major depressive disorder, single episode, unspecified; G51.0 Bell's palsy; Z79.891 Long term (current) use of opiate analgesic; Z79.899 Other long term (current) drug therapy

== ENCOUNTER → 2021-09-03 | Outpatient (CLI) | payer OTHER ==
[~2021-09-03] VITALS: Ht 157.5 cm; Wt 84.1 kg
[2021-09-03 09:55] VITALS: BP 146/76
--- NOTE | 2021-09-03 10:05 | NUR ---
Pain Clinic Assessment: 1. History of Osteoarthritis: BACK HANDS History of Rheumatoid Arthritis: DENIES 2. Height: 5 ft. 2 in. 157.5 cm. Weight: 185.4 lb. oz. 84.097 kg. Patient's BMI: 33.9 3. Vital Signs: BP: 146/76 Pulse: 68 Resp: 20 Temp: 02 Sat: 96 ECG Mon: 4. Pain Intensity: 4-5 5. Fall Risk: Dizziness: N Needs help standing or walking: N Fallen in the last 3 months: N Fall risk comments: 6. Patient on Blood Thinner: None 7. History of Hypertension: N 8. Opioid Therapy greater than 6 weeks: Y Opiate Contract Signed: 02/28/16 9. Risk Assessment Tool Provided: low-2 10. Functional Assessment Tool: 11. Recreational Drug Use: Never Drug Type: Tobacco Use: Never Smoker Tobacco Type: Amount or Packs/day: How Many Years: Alcohol Use: Yes Frequency: Quant:
== END ==
LOC: PAIN 07:03
PROVIDERS: ATTEND Clinical Nurse Specialist Adult Health
DX: G89.29 Other chronic pain (principal); M47.26 Other spondylosis with radiculopathy, lumbar region; M48.061 Spinal stenosis, lumbar region without neurogenic claudication; M41.80 Other forms of scoliosis, site unspecified; M43.22 Fusion of spine, cervical region; M19.90 Unspecified osteoarthritis, unspecified site; Z79.899 Other long term (current) drug therapy; Z88.8 Allergy status to other drugs, medicaments and biological substances; Z88.6 Allergy status to analgesic agent

== ENCOUNTER → 2021-12-03 | Outpatient (CLI) | payer OTHER ==
[~2021-12-03] VITALS: Ht 157.5 cm; Wt 81.6 kg
[~2021-12-03] MED LIST changes: +TRULICITY0.75 MG/0. SUBQ
[2021-12-03 09:12] VITALS: BP 127/76
--- NOTE | 2021-12-03 09:15 | NUR ---
Pain Clinic Assessment: 1. History of Osteoarthritis: BACK HANDS History of Rheumatoid Arthritis: DENIES 2. Height: 5 ft. 2 in. 157.5 cm. Weight: 180.0 lb. oz. 81.648 kg. Patient's BMI: 32.9 3. Vital Signs: BP: 127/76 Pulse: 72 Resp: 16 Temp: 02 Sat: 96 ECG Mon: 4. Pain Intensity: 4-5 5. Fall Risk: Dizziness: N Needs help standing or walking: N Fallen in the last 3 months: Y Fall risk comments: 6. Patient on Blood Thinner: None 7. History of Hypertension: N 8. Opioid Therapy greater than 6 weeks: Y Opiate Contract Signed: 02/28/16 9. Risk Assessment Tool Provided: low-2 10. Functional Assessment Tool: 11. Recreational Drug Use: Never Drug Type: Tobacco Use: Never Smoker Tobacco Type: Amount or Packs/day: How Many Years: Alcohol Use: Yes Frequency: Quant:
== END ==
LOC: PAIN 07:56
PROVIDERS: ATTEND Clinical Nurse Specialist Adult Health
DX: G89.29 Other chronic pain (principal); M96.1 Postlaminectomy syndrome, not elsewhere classified; M48.061 Spinal stenosis, lumbar region without neurogenic claudication; M47.26 Other spondylosis with radiculopathy, lumbar region; M41.86 Other forms of scoliosis, lumbar region; M19.90 Unspecified osteoarthritis, unspecified site; Z88.8 Allergy status to other drugs, medicaments and biological substances; Z79.899 Other long term (current) drug therapy

== ENCOUNTER → 2022-01-14 | Outpatient (CLI) | payer OTHER ==
[~2022-01-14] VITALS: Ht 157.5 cm; Wt 81.8 kg
[2022-01-14 09:15] VITALS: BP 147/83
--- NOTE | 2022-01-14 09:30 | NUR ---
Pain Clinic Assessment: 1. History of Osteoarthritis: BACK HANDS History of Rheumatoid Arthritis: DENIES 2. Height: 5 ft. 2 in. 157.5 cm. Weight: 180.4 lb. oz. 81.829 kg. Patient's BMI: 33.0 3. Vital Signs: BP: 147/83 Pulse: 71 Resp: 18 Temp: 02 Sat: 97 ECG Mon: 4. Pain Intensity: 8 5. Fall Risk: Dizziness: N Needs help standing or walking: N Fallen in the last 3 months: N Fall risk comments: 6. Patient on Blood Thinner: None 7. History of Hypertension: N 8. Opioid Therapy greater than 6 weeks: Y Opiate Contract Signed: 02/28/16 9. Risk Assessment Tool Provided: low-2 10. Functional Assessment Tool: 11. Recreational Drug Use: Never Drug Type: Tobacco Use: Never Smoker Tobacco Type: Amount or Packs/day: How Many Years: Alcohol Use: Yes Frequency: Quant:
== END ==
LOC: PAIN 07:46
PROVIDERS: ATTEND Anesthesiology Pain Medicine
DX: M54.16 Radiculopathy, lumbar region (principal); Z79.899 Other long term (current) drug therapy